=== PATIENT | male | born 1975 | race Caucasian/White ===

== ENCOUNTER 2023-05-12 04:49 | Inpatient (IN) | payer BC ==
[2023-05-12] MEDS ORDERED: levETIRAcetam IV 500 MG/5 ML VIAL IVP STA (05:25)
[2023-05-12] MEDS ORDERED: SODIUM CHLORIDE 0.9% 1,000 ML IV STA ×2 (05:25→07:00)
[2023-05-12 05:32] LABS: Glucose,Whole Blood 136 mg/dL (70-110)
[2023-05-12 05:33] LABS: Basophils # (A) 0.1 k/uL (0-0.2); Basophils % (A) 1 %; Eosinophils # (A) 0.5 k/uL (0-0.7); Eosinophils % (A) 4 %; HCT 50.2 % (39.0-53.0); HGB 16.3 gm/dL (13.0-17.5); Lymphocytes # (A) 2.4 k/uL (1.0-4.8); Lymphocytes % (A) 22 %; MCH 31.4 pg (25.0-35.0); MCHC 32.5 g/dL (31.0-37.0); MCV 96.6 fL (80.0-100.0); Mean Platelet Volume 7.9; Monocytes # (A) 1.2 k/uL (0-1.0); Monocytes % (A) 11 %; Neutrophils # (A) 6.4 k/uL (1.3-7.7); Neutrophils % (A) 59 %; Platelet Count 332 k/uL (150-450); RDW 12.6 % (11.5-15.5); WBC 10.9 k/uL (3.8-10.6)
[2023-05-12 05:42] LABS: AST 45 U/L (17-59); African American GFR (CKD) >90 (>60 ml/min/1.73 sqM); Albumin 5.2 g/dL (3.5-5.0); Alcohol <10 mg/dL; Alkaline Phosphatase 48 U/L (38-126); Blood Urea Nitrogen 6 mg/dL (9-20); Calcium 10.7 mg/dL (8.4-10.2); Chloride 107 mmol/L (98-107); Glucose 158 mg/dL (74-99); Magnesium 2.4 mg/dL (1.6-2.3); Non-African American GFR(CKD) >90 (>60 ml/min/1.73 sqM); Potassium 4.5 mmol/L (3.5-5.1); Sodium 141 mmol/L (137-145); Total Bilirubin 1.1 mg/dL (0.2-1.3); Total Protein 8.4 g/dL (6.3-8.2)
--- NOTE | 2023-05-12 05:44 | ED ---
General Adult HPI - General Chief complaint: Neuro Symptoms/Deficit Stated complaint: Seizure Time Seen by Provider: 05/12/23 05:07 Source: patient, EMS Mode of arrival: EMS Limitations: no limitations - History of Present Illness Initial comments: Tevin is a 48-year-old male with history of hypertension who presents to the emergency department today via ambulance for evaluation of new onset of seizure. History is provided by the patient's significant other at bedside. Significant other reports that yesterday the patient was having some episodes in which she would have a blank stare and not be responsive. These episodes last a couple of minutes and resolves spontaneously. They were concerned this may be a reaction to his new hypertension medication and decided not to seek care however approximately one hour prior to arrival the patient had an episode of seizure- like activity followed by snoring respirations and then a second episode of s eizure activity he was postictal for EMS arrival brought to the ER for further evaluation. Other reports that the patient does occasionally drink alcohol usually only on weekends, yesterday he may have had approximately 10 beers however he's never been through alcohol withdrawal. - Related Data Home Medications Medication Instructions Recorded Confirmed Levothyroxine Sodium [Synthroid] 100 mcg PO DAILY@0430 05/12/23 05/12/23 Tamsulosin HCl [Flomax] 0.4 mg PO DAILY@1700 05/12/23 05/12/23 lisinopriL [Prinivil] 10 mg PO DAILY@0430 05/12/23 05/12/23 Allergies Allergy/AdvReac Type Severity Reaction Status Date / Time No Known Allergies Allergy Verified 05/12/23 04:57 Review of Systems ROS Statement: Those systems with pertinent positive or pertinent negative responses have been documented in the HPI. ROS Other: All systems not noted in ROS Statement are negative. Past Medical History Past Medical History: Hypertension History of Any Multi-Drug Resistant Organisms: None Reported Past Surgical History: No Surgical Hx Reported Past Psychological History: No Psychological Hx Reported Smoking Status: Never smoker Past Alcohol Use History: Occasional Past Drug Use History: Marijuana General Exam - General Exam Comments Initial Comments: Physical Exam GENERAL: Patient is well-developed and well-nourished. Patient actively seizing HENT: Normocephalic, Atraumatic. EYES: Eyes deviated downward PULMONARY: Unlabored respirations. CARDIOVASCULAR: Tachycardic, regular ABDOMEN: Non-distended SKIN: No rashes or bruising : Deferred NEUROLOGIC: Seizing MUSCULOSKELETAL: Seizing No obvious injury PSYCHIATRIC: Unable to assess Limitations: no limitations Course Vital Signs 05/12/23 05/12/23 05/12/23 04:53 05:14 06:30 Temperature Pulse Rate 112 H 105 H 95 Respiratory 20 18 18 Rate Blood Pressure 158/98 129/78 120/81 O2 Sat by Pulse 98 96 98 Oximetry 05/12/23 05/12/23 05/12/23 07:00 08:00 10:00 Temperature 97.8 F Pulse Rate 92 89 80 Respiratory 18 16 16 Rate Blood Pressure 135/72 112/70 106/71 O2 Sat by Pulse 98 97 98 Oximetry 05/12/23 05/12/23 05/12/23 11:00 13:00 14:00 Temperature Pulse Rate 79 75 79 Respiratory 16 16 16 Rate Blood Pressure 111/93 139/98 122/86 O2 Sat by Pulse 100 98 100 Oximetry 05/12/23 15:00 Temperature 98.1 F Pulse Rate 80 Respiratory 16 Rate Blood Pressure 137/96 O2 Sat by Pulse 98 Oximetry EKG Findings - EKG Comments: EKG Findings:: EKG obtained due to acute cardiac, EKG obtained at 4:54 AM, rate is 111 rhythm is narrow complex regular tachycardia P-wave before each QRS this is a sinus tachycardia with no acute ST elevations or depressions no evidence of acute ischemia or infarction. Medical Decision Making - Medical Decision Making Was pt. sent in by a medical professional or institution (, PA, CENTRAL SUPPLY CLERK, urgent care, hospital, or fdc...) When possible be specific @ -No Did you speak to anyone other than the patient for history (EMS, parent, family, police, friend...)? What history was obtained from this source @ -Significant other, EMS Did you review nursing and triage notes (agree or disagree)? Why? @ -I reviewed and agree with nursing and triage notes Were old charts reviewed (outside hosp., previous admission, EMS record, old EKG, old radiological studies, urgent care reports/EKG's, fdc records)? Report findings @ -No old charts were reviewed Differential Diagnosis (chest pain, altered mental status, abdominal pain women, abdominal pain men, vaginal bleeding, weakness, fever, dyspnea, syncope, headache, dizziness, GI bleed, back pain, seizure, CVA, palpatations, mental health, musculoskeletal)? @ -Differential Seizure: Recurrent seizure disorder, febrile seizure, alcohol withdrawal, stimulants, meningitis, encephalitis, intercranial hemorrhage, intracranial tumor, stroke, eclampsia, thyrotoxicosis, hypocalcemia, hyponatremia, hypernatremia, hypomagnesemia, psychogenic, this is not meant to be an all-inclusive list. EKG interpreted by me (3pts min.). @ -As above X-rays interpreted by me (1pt min.). @ -None done CT interpreted by me (1pt min.). @ -No obvious mass or bleed U/S interpreted by me (1pt. min.). @ -None done What testing was considered but not performed or refused? (CT, X-rays, U/S, labs)? Why? @ -MRI, EEG can be performed on admission What meds were considered but not given or refused? Why? @ -None Did you discuss the management of the patient with other professionals (professionals i.e. , PA, CENTRAL SUPPLY CLERK, lab, RT, psych nurse, hospital social worker, programming specialist, teacher, life science technical officer, case filler)? Give summary @ -Dr. Vale admitting physician Was smoking cessation discussed for >3mins.? @ -No Was critical care preformed (if so, how long)? @ -Yes, 30 minutes Were there social determinants of health that impacted care today? How? ( Homelessness, low income, unemployed, alcoholism, drug addiction, transportation, low edu. Level, literacy, decrease access to med. care, mcc, rehab)? @ -No Was there de-escalation of care discussed even if they declined (Discuss DNR or withdrawal of care, Hospice)? DNR status @ -No What co-morbidities impacted this encounter? (DM, HTN, Smoking, COPD, CAD, Cancer, CVA, ARF, Chemo, Hep., AIDS, mental health diagnosis, sleep apnea, morbid obesity)? @ -Hypertension Was patient admitted / discharged? Hospital course, mention meds given and route, prescriptions, significant lab abnormalities, going to OR and other pertinent info. @ -Admit Patient was seen at outside, history was obtained from significant other. Patient with 2 seizures prior to arrival patient had a tonic-clonic seizure with loss of consciousness lasting greater than 2 minutes with a prolonged postictal period. Patient received 2 mg IV Ativan and 1 g of Keppra. Head CT was negative. Labs resulted with likely high anion gap metabolic acidosis due to lactic acid from the seizure. No other actionable abnormalities were noted. Patient will be admitted for neurology evaluation. Patient care discussed with Dr Randy Levy who agrees with plan for admission for MRI/EEG and treatment with PO Keppra 750mg. Undiagnosed new problem with uncertain prognosis? @ -YeS Drug Therapy requiring intensive monitoring for toxicity (Heparin, Nitro, Insulin, Cardizem)? @ -No Were any procedures done? @ -No Diagnosis/symptom? @ -New onset seizure Acute, or Chronic, or Acute on Chronic? @ -Acute Uncomplicated (without systemic symptoms) or Complicated (systemic symptoms)? @ -default Side effects of treatment? @ -No Exacerbation, Progression, or Severe Exacerbation? @ -No Poses a threat to life or bodily function? How? (Chest pain, [place], [place], pneumonia, PE, COPD, DKA, ARF, appy, cholecystitis, CVA, Diverticulitis, Homicidal, Suicidal, threat to staff... and all critical care pts) @ -Yes - Lab Data Result diagrams: 05/12/23 05:27 05/12/23 05:27 Lab Results 05/12/23 05/12/23 05/12/23 Range/Units 05:27 05:27 05:27 WBC 10.9 H (3.8-10.6) k/uL RBC 5.20 (4.30-5.90) m/uL Hgb 16.3 (13.0-17.5) gm/dL Hct 50.2 (39.0-53.0) % MCV 96.6 (80.0-100.0) fL MCH 31.4 (25.0-35.0) pg MCHC 32.5 (31.0-37.0) g/dL RDW 12.6 (11.5-15.5) % Plt Count 332 (150-450) k/uL MPV 7.9 Neutrophils % 59 % Lymphocytes % 22 % Monocytes % 11 % Eosinophils % 4 % Basophils % 1 % Neutrophils # 6.4 (1.3-7.7) k/uL Lymphocytes # 2.4 (1.0-4.8) k/uL Monocytes # 1.2 H (0-1.0) k/uL Eosinophils # 0.5 (0-0.7) k/uL Basophils # 0.1 (0-0.2) k/uL Sodium 141 (137-145) mmol/L Potassium 4.5 (3.5-5.1) mmol/L Chloride 107 (98-107) mmol/L Carbon Dioxide <5 L* (22-30) mmol/L Anion Gap mmol/L BUN 6 L (9-20) mg/dL Creatinine 0.76 (0.66-1.25) mg/dL Est GFR (CKD-EPI)AfAm >90 (>60 ml/min/1.73 sqM) Est GFR (CKD-EPI)NonAf >90 (>60 ml/min/1.73 sqM) Glucose 158 H (74-99) mg/dL POC Glucose (mg/dL) (70-110) mg/dL POC Glu Service Operator ID Calcium 10.7 H (8.4-10.2) mg/dL Magnesium 2.4 H (1.6-2.3) mg/dL Total Bilirubin 1.1 (0.2-1.3) mg/dL AST 45 (17-59) U/L ALT 52 H (4-49) U/L Alkaline Phosphatase 48 (38-126) U/L Total Protein 8.4 H (6.3-8.2) g/dL Albumin 5.2 H (3.5-5.0) g/dL Urine Opiates Screen Not Detected (NotDetected) Ur Oxycodone Screen Not Detected (NotDetected) Urine Methadone Screen Not Detected (NotDetected) Ur Propoxyphene Screen Not Detected (NotDetected) Ur Barbiturates Screen Not Detected (NotDetected) U Tricyclic Antidepress Not Detected (NotDetected) Ur Phencyclidine Scrn Not Detected (NotDetected) Ur Amphetamines Screen Not Detected (NotDetected) U Methamphetamines Scrn Not Detected (NotDetected) U Benzodiazepines Scrn Not Detected (NotDetected) Urine Cocaine Screen Not Detected (NotDetected) U Marijuana (THC) Screen Detected H (NotDetected) Serum Alcohol <10 mg/dL 05/12/23 Range/Units 05:30 WBC (3.8-10.6) k/uL RBC (4.30-5.90) m/uL Hgb (13.0-17.5) gm/dL Hct (39.0-53.0) % MCV (80.0-100.0) fL MCH (25.0-35.0) pg MCHC (31.0-37.0) g/dL RDW (11.5-15.5) % Plt Count (150-450) k/uL MPV Neutrophils % % Lymphocytes % % Monocytes % % Eosinophils % % Basophils % % Neutrophils # (1.3-7.7) k/uL Lymphocytes # (1.0-4.8) k/uL Monocytes # (0-1.0) k/uL Eosinophils # (0-0.7) k/uL Basophils # (0-0.2) k/uL Sodium (137-145) mmol/L Potassium (3.5-5.1) mmol/L Chloride (98-107) mmol/L Carbon Dioxide (22-30) mmol/L Anion Gap mmol/L BUN (9-20) mg/dL Creatinine (0.66-1.25) mg/dL Est GFR (CKD-EPI)AfAm (>60 ml/min/1.73 sqM) Est GFR (CKD-EPI)NonAf (>60 ml/min/1.73 sqM) Glucose (74-99) mg/dL POC Glucose (mg/dL) 136 H (70-110) mg/dL POC Glu Service Operator ID Calcium (8.4-10.2) mg/dL Magnesium (1.6-2.3) mg/dL Total Bilirubin (0.2-1.3) mg/dL AST (17-59) U/L ALT (4-49) U/L Alkaline Phosphatase (38-126) U/L Total Protein (6.3-8.2) g/dL Albumin (3.5-5.0) g/dL Urine Opiates Screen (NotDetected) Ur Oxycodone Screen (NotDetected) Urine Methadone Screen (NotDetected) Ur Propoxyphene Screen (NotDetected) Ur Barbiturates Screen (NotDetected) U Tricyclic Antidepress (NotDetected) Ur Phencyclidine Scrn (NotDetected) Ur Amphetamines Screen (NotDetected) U Methamphetamines Scrn (NotDetected) U Benzodiazepines Scrn (NotDetected) Urine Cocaine Screen (NotDetected) U Marijuana (THC) Screen (NotDetected) Serum Alcohol mg/dL Disposition Clinical Impression: New onset seizure Disposition: ADMITTED IP TO THIS HOSP Is patient prescribed a controlled substance at d/c from ED?: No
[2023-05-12 05:48] LABS: Carbon Dioxide <5 mmol/L (22-30)
[2023-05-12 05:50] LABS: ALT 52 U/L (4-49)
[2023-05-12] MEDS ORDERED: LORazepam 2 MG/ML INJ IV STA (06:16)
--- NOTE | 2023-05-12 06:58 | CT ---
EXAMINATION TYPE: CT brain wo con CT DLP: 1252 mGycm, Automated exposure control for dose reduction was used. DATE OF EXAM: 05/12/2023 6:22 AM COMPARISON: No recent priors.. CLINICAL INDICATION:Male, 48 years old with history of seizure activity, TECHNIQUE: Brain: Axial CT images of the brain were obtained with coronal and sagittal reformats created and rev iewed. Contrast used: None. Oral contrast used: None. FINDINGS: Brain: Extra-axial spaces: No abnormal extra-axial fluid collections. Ventricular system: Within normal limits Cerebral parenchyma: No acute intraparenchymal hemorrhage or mass effect. The peters-white junction is well differentiated. Cerebellum: Unremarkable. Mass effect: No evidence of midline shift. Intracranial vasculature: unremarkable Soft tissues: Normal. Calvarium/osseous structures: No depressed skull fracture. Paranasal sinuses and mastoid air cells: Mild scattered paranasal sinus disease. Visualized orbits: Orbital contents are intact. IMPRESSION: No acute intracranial process.
[2023-05-12] MEDS ORDERED: NALOXONE 0.4 MG/ML 1 ML VIAL IV PRN (07:20)
[2023-05-12] MEDS: SODIUM CHLORIDE 0.9% 1,000 ML IV SCH (07:32)
[2023-05-12 08:26] LABS: Amphetamine Screen,Urine Not Detected (NotDetected); Barbiturate Screen,Urine Not Detected (NotDetected); Benzodiazepines Screen,Urine Not Detected (NotDetected); Cocaine Screen,Urine Not Detected (NotDetected); Methadone Screen, Urine Not Detected (NotDetected); Opiate Screen,Urine Not Detected (NotDetected); Oxycodone Screen, Urine Not Detected (NotDetected); Phencyclidine Screen,Urine Not Detected (NotDetected); Tricyclic Antidepressant,Urine Not Detected (NotDetected); Urn Cannabinoid Scrn Detected (NotDetected)
--- NOTE | 2023-05-12 13:12 | P.HPIM ---
History of Present Illness H&P Date: 05/12/23 Chief Complaint: Seizure activity This is a 48-year-old gentleman with past medical history significant for hypertension, BPH, hypothyroidism, obesity, daily alcohol use, marijuana use, transferred into the ER via EMS. Significant other reported to ER that patient drank approximately 10 beers yesterday.Patient developed seizure -like activity accompanied by blank stares and snoring, multiple episodes. EMS reports upon arrival,patient was post ictal, received 2 mg of IV Ativan and 1 g of Keppra. Brain CT negative. Patient this morning reports he drinks 4- tall boys daily, but thinks he only consumed two yesterday. Does not recall the entire event very well just remembers he felt lightheaded ,some confusion, palpitations upon walking back to his bed around 10 PM and then remembers getting up off the floor. Reports urine incontinence- states "the bed was wet". Does not recall the downtime.On admission mild tachycardia, maintaining O2 sats in the high 90s on 5 L nasal cannula, hypertensive with blood pressure 158/98, respiratory rate 20. Afebrile, WBC 10.9. EKG sinus tachycardia, currently telemetry sinus rhythm. Hemoglobin 16.3, MCV 96.6, platelets 332, sodium 141, potassium 4.5, bicarb less than 5, anion gap unable to calculate, BUN 6, creatinine 0.76, glucose 136, magnesium 2.4, ALT 52. Toxicology screen detected THC, serum alcohol less than 10. Majority of information obtained from ER, chart and patient. Review of Systems ROS Statement: Those systems with pertinent positive or pertinent negative responses have been documented in the HPI. ROS Other: All systems not noted in ROS Statement are negative. Past Medical History Past Medical History: Hypertension History of Any Multi-Drug Resistant Organisms: None Reported Past Surgical History: No Surgical Hx Reported Past Psychological History: No Psychological Hx Reported Smoking Status: Never smoker Past Alcohol Use History: Occasional Past Drug Use History: Marijuana Medications and Allergies Home Medications Medication Instructions Recorded Confirmed Type Levothyroxine Sodium [Synthroid] 100 mcg PO DAILY@0430 05/12/23 05/12/23 History Tamsulosin HCl [Flomax] 0.4 mg PO DAILY@1700 05/12/23 05/12/23 History lisinopriL [Prinivil] 10 mg PO DAILY@0430 05/12/23 05/12/23 History Allergies Allergy/AdvReac Type Severity Reaction Status Date / Time No Known Allergies Allergy Verified 05/12/23 04:57 Physical Exam Vitals: Vital Signs Temp Pulse Resp BP Pulse Ox 05/12/23 08:00 97.8 F 89 16 112/70 97 05/12/23 07:00 92 18 135/72 98 05/12/23 06:30 95 18 120/81 98 05/12/23 05:14 105 H 18 129/78 96 05/12/23 04:53 112 H 20 158/98 98 Intake and Output 05/11/23 05/12/23 05/12/23 22:59 06:59 14:59 Other: Weight 99.79 kg PHYSICAL EXAM: VITAL SIGNS: As above GENERAL: Well-nourished, Lying on stretcher, no acute distress,resting. ] HEENT: Normocephalic,Conjunctivae normal. eyes normal. NECK: Supple, No JVD. No thyroid enlargement. No LNs CARDIOVASCULAR: S1, S2 regular.No murmur RESPIRATION: Unlabored, equal air entry, Breath sounds diminished in the bases. No rhonchi or crackles. No bronchial breathing. ABDOMEN: Soft, nontender, nondistended . No guarding. no masses palpable. No ascites, No hepatosplenomegaly.Bowel sounds heard. LEGS: No edema. no swelling PSYCHIATRY: Alert and oriented X3, mood and affect normal. NERVOUS SYSTEM: Cranial N 2-12 grossly normal. No focal deficits.negative flap test. Strength and sensation grossly intact. Skin: Warm and dry, no rash. Results CBC & Chem 7: 05/12/23 05:27 05/12/23 05:27 Labs: Abnormal Lab Results - Last 24 Hours (Table) 05/12/23 05/12/23 05/12/23 Range/Units 05:27 05:27 05:27 WBC 10.9 H (3.8-10.6) k/uL Monocytes # 1.2 H (0-1.0) k/uL Carbon Dioxide <5 L* (22-30) mmol/L BUN 6 L (9-20) mg/dL Glucose 158 H (74-99) mg/dL POC Glucose (mg/dL) (70-110) mg/dL Calcium 10.7 H (8.4-10.2) mg/dL Magnesium 2.4 H (1.6-2.3) mg/dL ALT 52 H (4-49) U/L Total Protein 8.4 H (6.3-8.2) g/dL Albumin 5.2 H (3.5-5.0) g/dL U Marijuana (THC) Screen Detected H (NotDetected) 05/12/23 Range/Units 05:30 WBC (3.8-10.6) k/uL Monocytes # (0-1.0) k/uL Carbon Dioxide (22-30) mmol/L BUN (9-20) mg/dL Glucose (74-99) mg/dL POC Glucose (mg/dL) 136 H (70-110) mg/dL Calcium (8.4-10.2) mg/dL Magnesium (1.6-2.3) mg/dL ALT (4-49) U/L Total Protein (6.3-8.2) g/dL Albumin (3.5-5.0) g/dL U Marijuana (THC) Screen (NotDetected) Assessment and Plan Assessment: New onset seizure activity the patient with daily alcohol use, THC, etiology unclear. History of atrial fibrillation, reported per patient Hypertension Alcohol abuse, daily Marijuana use Hypothyroidism Obesity Plan: Continue on current medication regime ,monitoring and symptomatic treatment. Seizure precautions. Neurology consult in place ,recommendations pending. Patient also informed us that he has a history of atrial fibrillation, as does his father, therefore cardiology was also consulted. The impression and plan of care has been dictated as directed. : I performed a history and examination of this patient, discussed the same with the dictator. I agree with the dictator's note ,documented as a scribe. Any additional findings or plans will be noted.
[2023-05-12] MEDS ORDERED: LORazepam 2 MG/ML INJ IV PRN (14:36)
--- NOTE | 2023-05-12 14:36 | P.CNNES ---
History of Present Illness Consult date: 05/12/23 Requesting physician: Letty Porras Reason for Consult: new onset seizure History of Present Illness: This is a 48-year-old gentleman presented emergency department because of seizure-like activity. The patient is accompanied with his and [id number] will help well with some of the history. It seems that the patient was having episode of blank stares and confusions yesterday that was brief according to the and he had about 3 episodes and refused to come to the hospital for evaluation. Today the woke the patient up at 4 AM and then shortly after she heard a "crash" and went and saw her on the floor face down and was taken throughout all extremities and the episode lasted the activity then within a few minutes he had another seizure also lasting less than a minute and it seems that he had 2 seizures within 5 minutes. 911 was called and seems that the patient had another seizure-like activity in which the he had shaking of all extremities though seen by ambulance according to the and had another one while in the ED with drooling. Per the that he had a total 4 seizure-like activities today. It seems that the this past Thursday the patient has not been feeling well and had low-grade fever as high as 99.5 which resolved on Thursday he has not been drinking alcohol as much last couple days but then yesterday he drank a little bit more. According to the he probably had 6-8 and cans of beers yesterday but again after last couple days he has not been drinking. He does not have any history of seizures. Denies any sick contacts. He does have a rash in his feet and he thinks it's the due to athlete's foot. He uses marijuana but denies any illicit drug use or tobacco use. He feels he is currently doing better. Denies of any headache. Denies of any visual disturbance, focal weakness. Per the patient's has history of hypertension for last 2 weeks and has been on medication, he is on thyroid medication, he has Alba, as well as E told he has a heart condition. Some of the workup during his hospital visit consisted of: Patient is afebrile. He presented that tachycardia as high as 112. Respiratory rate is within normal limits. white Blood cell is 10.9 otherwise and it's the unremarkable. Currently oxygen less than 5, BUN 6, creatinine is 0.76, glucose is 158, calcium is 10.7, magnesium 2.4, AST is 45 ALT is 52. Urine drug screen is positive for marijuana otherwise dresses not detected and serum alcohol was less than 10. CT of the head is reported as no acute intracranial process. I personally reviewed the CT head I agree there is no acute or subacute ischemia, there is no any significant bleed, I don't appreciate any mass or any herniation. Review of Systems Review of system: The 12 point system was reviewed and apparent positive and negative per HPI. Past Medical History Past Medical History: Hypertension History of Any Multi-Drug Resistant Organisms: None Reported Past Surgical History: No Surgical Hx Reported Past Psychological History: No Psychological Hx Reported Smoking Status: Never smoker Past Alcohol Use History: Occasional Past Drug Use History: Marijuana Medications and Allergies Home Medications Medication Instructions Recorded Confirmed Type Levothyroxine Sodium [Synthroid] 100 mcg PO DAILY@0430 05/12/23 05/12/23 History Tamsulosin HCl [Flomax] 0.4 mg PO DAILY@1700 05/12/23 05/12/23 History lisinopriL [Prinivil] 10 mg PO DAILY@0430 05/12/23 05/12/23 History Allergies Allergy/AdvReac Type Severity Reaction Status Date / Time No Known Allergies Allergy Verified 05/12/23 04:57 Physical Examination - Vital Signs Vital Signs: Vital Signs Temp Pulse Resp BP Pulse Ox 05/12/23 08:00 97.8 F 89 16 112/70 97 05/12/23 07:00 92 18 135/72 98 05/12/23 06:30 95 18 120/81 98 05/12/23 05:14 105 H 18 129/78 96 05/12/23 04:53 112 H 20 158/98 98 Intake and Output 05/11/23 05/12/23 05/12/23 22:59 06:59 14:59 Other: Weight 99.79 kg GENERAL: The patient is lying in bed and is not in acute distress. NEUROLOGICAL: Higher mental function: The patient is awake, alert, oriented to self, place and time. Patient is following commands. No aphasia and no neglect. Cranial nerves: The pupils are round, equal and reactive to light and accommodation. Visual schilling are full to confrontation throughout. Extraocular movement is intact no nystagmus is noted. Facial sensation is normal to touch throughout. The facial strength is normal throughout. Hearing is normal bilaterally to hand rub. Tongue is midline and moved [id number] without any difficulty. No dysarthria is noted. Shoulder shrug is normal bilaterally. Motor: The strength is 5 over 5 throughout. Normal tone and bulk. Cerebellum: Normal finger to nose bilaterally. Sensation: Sensation is normal to touch throughout. Reflexes (right/left): 2+ throughout. Plantars are downgoing bilaterally. Results - Laboratory Findings CBC and BMP: 05/12/23 05:27 05/12/23 05:27 Abnormal Lab Findings: Abnormal Labs 05/12/23 05/12/23 05/12/23 05:27 05:27 05:27 WBC 10.9 H Monocytes # 1.2 H Carbon Dioxide <5 L* BUN 6 L Glucose 158 H POC Glucose (mg/dL) Calcium 10.7 H Magnesium 2.4 H ALT 52 H Total Protein 8.4 H Albumin 5.2 H U Marijuana (THC) Screen Detected H 05/12/23 05:30 WBC Monocytes # Carbon Dioxide BUN Glucose POC Glucose (mg/dL) 136 H Calcium Magnesium ALT Total Protein Albumin U Marijuana (THC) Screen Assessment and Plan Assessment: This is a 48-year-old gentleman with not been feeling well since this past Thursday and had low-grade fever and had the decrease in all call consumption since he has not been feeling well recently but yesterday he had probably about 6-8 cans of beers and the yesterday he's been having the 3 episode of blank stare with confusion but refused come to the hospital. The patient had the 4 witnessed generalized tonic-clonic seizure according to the . Patient does not have any history of prior seizures in the past. New onset seizure and seems the patient has clinical status epilepticus that resolved: Unsure exactly the etiology. Unsure if there is a component of alcohol withdrawal since the patient has not been drinking call for the last couple days and his alcohol level was less than 10 Low-grade fever this past week that resolved: Unsure exactly etiology Hypertension hypothyroidism ALBA Alcohol use Plan: I ordered a routine EEG as well as MRI the brain. The EEG is completed and the preliminary report as there is no seizure seen In the ED the patient was given Keppra 1 g patient received 2 mg of Ativan. I placed him on Keppra 500 mg every 12 hours and prior to this she was not on any antiepileptic (no need for higher level dose since new onset seizure and was not on antiepileptic prior to this and is drastically better). I ordered vitamin B12, folate, TSH, ammonia level. I consulted the ID team because the of patient having low-grade fever and further workup. All the workup is negative and the patient continues to have confusion with seizures consider lumbar puncture. Seizure precautions Seizure pads I placed the patient on thiamine 100mg daily. She was counseled on alcohol cessation Patient was notified because his seizures, to avoid driving for 6 month until seizure-free, avoid heights, avoids swimming unassisted or using heavy machinery. Defer the rest of the medical management to primary team. The plan is discussed with patient, his and [id number] who is at bedside. Thank you for the consultation. Time with Patient: Greater than 30
--- NOTE | 2023-05-12 14:47 | P.CRDCN ---
History of Present Illness Consult date: 05/12/23 Consult reason: atrial fibrillation (History of) History of present illness: History of present illness: This is a 48-year-old male with past medical history of fatty liver, hypertension, hypothyroidism, benign prostatic hypertrophy. We have been asked to see the patient for history of atrial fibrillation. Patient states he has never been diagnosed with atrial fibrillation. He did have a event monitor placed by Dr. Irving in 2016 and he does not know the results of that. He now follows with Dr. Archer and is scheduled for a calcium scan to be done at [facility] scheduled on June 08. Patient states he thinks he may have atrial fibrillation because his father has it and he feels that when people check his pulse it is irregular. He does not know for sure. Also has fluttering of his chest at times. He had 2 episodes of almost passing out while mowing the lawn during the summer and he states his hands and his body was shaking. Patient had a seizure activity yesterday with blank stares and snoring. That was the reason for him to come into the hospital. He denies history of smoking. He drinks at least a couple beers Thursday through Thursday and a stroke on the weekends. He uses edible marijuana. No other drug use. The patient is noted to have a stress echo done in 2016 which was normal. Patient is seen today in the emergency center waiting for a bed on the cardiac stepdown unit. Neurology is following for seizure disorder workup. EKG sinus rhythm, telemetry sinus rhythm CAT scan of the brain no abnormality WBC 10.9, hemoglobin 16.3. CO2 less than 5. BUN 6, creatinine 0.76. Blood sugar 158. Calcium 10.7. Magnesium 2.4. ALT 52. Drug screen positive for marijuana. Alcohol less than 10. Home cardiac medications: Lisinopril 10 mg daily. He is also on levothyroxine 100 g daily. Review Of Systems: At the time of my evaluation: Constitutional: No fever, no chills. No weakness, fatigue or lethargy. EENT: No headache. No dizziness. Lungs: No shortness of breath, cough, no sputum production. No wheezing. Cardiovascular: No chest pain, no lower extremity edema. No palpitations. No paroxysmal nocturnal dyspnea. No orthopnea. No lightheadedness or dizziness. Reports seizure. Abdominal: No abdominal pain. No nausea, vomiting. Musculoskeletal: No myalgias. No muscle weakness, no frequent falls. Integumentary: No wounds. No rash. No unusual bruising. Neurologic: No aphasia. No facial droop. No change in mentation. Physical examination: Gen: This is a 48-year-old male seen in the ER on the ER stretcher resting with no apparent distress. VS: reviewed HEENT: Head is atraumatic, normocephalic. Pupils equal, round. Sclerae is anicteric. NECK: Supple. No JVD. . LUNGS: Clear to auscultation. No wheezes or rhonchi. No intercostal retractions. HEART: Regular rate and rhythm. No murmur. ABDOMEN: Soft No tenderness. EXTREMITIES: No pedal edema. No calf tenderness. NEUROLOGICAL: Patient is awake, alert and oriented x3. Assessment: No seizure disorder Irregular heartbeat, palpitations No previous diagnosis of atrial fibrillation Hypertension Hypothyroidism Fatty liver Alcohol abuse, marijuana use Plan: Plan for event monitor Follow-up in the office in 3-4 weeks Cardiology will sign off this case and follow on an as-needed basis. Please reconsult for any new concerns. Patient may follow-up in the office in one to 2 weeks. Thank you kindly for this consultation. Nurse practitioner note has been reviewed, I agree with documented findings and plan of care. Patient was seen and examined. Past Medical History Past Medical History: Hypertension History of Any Multi-Drug Resistant Organisms: None Reported Past Surgical History: No Surgical Hx Reported Past Psychological History: No Psychological Hx Reported Smoking Status: Never smoker Past Alcohol Use History: Occasional Past Drug Use History: Marijuana Medications and Allergies Home Medications Medication Instructions Recorded Confirmed Type Levothyroxine Sodium [Synthroid] 100 mcg PO DAILY@0430 05/12/23 05/12/23 History Tamsulosin HCl [Flomax] 0.4 mg PO DAILY@1700 05/12/23 05/12/23 History lisinopriL [Prinivil] 10 mg PO DAILY@0430 05/12/23 05/12/23 History Allergies Allergy/AdvReac Type Severity Reaction Status Date / Time No Known Allergies Allergy Verified 05/12/23 04:57 Physical Exam Vitals: Vital Signs Temp Pulse Resp BP Pulse Ox 05/12/23 08:00 97.8 F 89 16 112/70 97 05/12/23 07:00 92 18 135/72 98 05/12/23 06:30 95 18 120/81 98 05/12/23 05:14 105 H 18 129/78 96 05/12/23 04:53 112 H 20 158/98 98 Intake and Output 05/11/23 05/12/23 05/12/23 22:59 06:59 14:59 Other: Weight 99.79 kg Results 05/12/23 05:27 05/12/23 05:27 Cardiac Enzymes 05/12/23 Range/Units 05:27 AST 45 (17-59) U/L CBC 05/12/23 Range/Units 05:27 WBC 10.9 H (3.8-10.6) k/uL RBC 5.20 (4.30-5.90) m/uL Hgb 16.3 (13.0-17.5) gm/dL Hct 50.2 (39.0-53.0) % Plt Count 332 (150-450) k/uL Comprehensive Metabolic Panel 05/12/23 Range/Units 05:27 Sodium 141 (137-145) mmol/L Potassium 4.5 (3.5-5.1) mmol/L Chloride 107 (98-107) mmol/L Carbon Dioxide <5 L* (22-30) mmol/L BUN 6 L (9-20) mg/dL Creatinine 0.76 (0.66-1.25) mg/dL Glucose 158 H (74-99) mg/dL Calcium 10.7 H (8.4-10.2) mg/dL AST 45 (17-59) U/L ALT 52 H (4-49) U/L Alkaline Phosphatase 48 (38-126) U/L Total Protein 8.4 H (6.3-8.2) g/dL Albumin 5.2 H (3.5-5.0) g/dL Current Medications Generic Name Dose Route Start Last Admin Trade Name Freq PRN Reason Stop Dose Admin Sodium Chloride 1,000 mls @ 130 mls/hr 05/12/23 07:30 05/12/23 07:32 Saline 0.9% IV 130 mls/hr .[id number] MAULIK Administration Levetiracetam 750 mg 05/12/23 09:00 05/12/23 09:17 Levetiracetam 750 Mg Tab PO 750 mg Q12HR MAULIK Administration Levothyroxine Sodium 100 mcg 05/13/23 04:30 Levothyroxine 100 Mcg Tab PO DAILY@0430 MAULIK Naloxone HCl 0.2 mg 05/12/23 07:20 Naloxone 0.4 Mg/Ml 1 Ml Vial IV Q2M PRN Opioid Reversal Intake and Output 05/11/23 05/12/23 05/12/23 22:59 06:59 14:59 Other: Weight 99.79 kg 05/12/23 05:27 05/12/23 05:27
[2023-05-12 15:39] LABS: C Reactive Protein 1.7 mg/dL (<1.0)
[2023-05-12] MEDS: THIAMINE 100 MG TAB PO SCH (16:51)
[2023-05-12] MEDS: TAMSULOSIN 0.4 MG CAP.ER.24H PO SCH (17:04)
--- NOTE | 2023-05-12 18:19 | EEG ---
ELECTROENCEPHALOGRAM REPORT CLINICAL HISTORY: This is a 48-year-old gentleman with recurrent seizure-like activity. The video EEG is obtained to evaluate for seizure and epileptiform activity. RELEVANT MEDICATIONS: 1. Keppra. 2. Ativan. EEG TYPE: A routine 21-channel EEG with video using the 10/20 electrode placement system. DESCRIPTION: Wakefulness and drowsiness are obtained. During awake state, the background consists of low voltage of 10 to 11 Hz activity. There is no physiological stage II sleep architecture. There is no focal slowing. There is diffuse excessive beta activity. INTERICTAL AND ICTAL: None. ACTIVATION PROCEDURE: Photic stimulation did not evoke a posterior driving response. There is no abnormality during the photic stimulation. Hyperventilation is not performed. CLINICAL INTERPRETATION: This is an abnormal routine EEG. The background is normal. There is no focal slowing, epileptiform discharge, or seizure on the EEG. The excessive beta activity is likely due to medication effect (Ativan). Clinical correlation is recommended. DAMIEN / EDGARN: [id number] /
[2023-05-12 18:36] LABS: Procalcitonin 0.06 ng/mL (0.02-0.09)
[2023-05-12] MEDS: levETIRAcetam 500 MG TAB PO SCH (20:29)
[2023-05-12 21:07] LABS: HSV I IgG Interp Negative (Negative); HSV II IgG Interp Negative (Negative)
--- NOTE | 2023-05-12 21:24 | P.CONS ---
History of Present Illness - Reason for Consult Consult date: 05/12/23 Low-grade fever recently Requesting physician: Randy Levy - Chief Complaint Seizure activity x one day - History of Present Illness Patient is a 48-year-old male with a past medical history significant for hypertension presenting to the ER earlier this morning for evaluation of new onset seizure patient apparently did have episodes of blank stare and not respon sive EMS was called and on arrival of EMS the patient was noticed to have seizure-like activity followed by snoring respiration and the patient has been brought into the hospital patient also mentioned that he did have low-grade fever yesterday to the neurologist who evaluated the patient earlier and patient mentioned to me that he did have a fever 100 F this morning however no fever has been reported on arrival to the ER and once had been documented since then patient mentions for the first time he has seizures in his life has been complaining of mild headache patient denies any photophobia he is fully awake and alert and knows that he is at [facility] denies any nausea vomiting no chest pain shortness of breath or cough no abdominal pain no diarrhea and no urinary symptoms patient did have a white count of 10.9 creatinine 0.76 ALT was 52 urine drug screen was positive for marijuana patient did have a CT of the brain that was negative for acute intracranial process with his seizure and concern for a fever infectious disease was consulted also noticed to have athlete's foot to bilateral feet with dry scaly skin with some excoriation. Denies any pain or any drainage Review of Systems Positive point and negatives has been mentioned in the HPI, complete review of systems was performed and all other systems are negative Past Medical History Past Medical History: Hypertension History of Any Multi-Drug Resistant Organisms: None Reported Past Surgical History: No Surgical Hx Reported Past Psychological History: No Psychological Hx Reported Smoking Status: Never smoker Past Alcohol Use History: Occasional Past Drug Use History: Marijuana Medications and Allergies Home Medications Medication Instructions Recorded Confirmed Type Levothyroxine Sodium [Synthroid] 100 mcg PO DAILY@0430 05/12/23 05/12/23 History Tamsulosin HCl [Flomax] 0.4 mg PO DAILY@1700 05/12/23 05/12/23 History lisinopriL [Prinivil] 10 mg PO DAILY@0430 05/12/23 05/12/23 History Allergies Allergy/AdvReac Type Severity Reaction Status Date / Time No Known Allergies Allergy Verified 05/12/23 04:57 Physical Exam Vitals: Vital Signs Temp Pulse Resp BP Pulse Ox 05/12/23 08:00 97.8 F 89 16 112/70 97 05/12/23 07:00 92 18 135/72 98 05/12/23 06:30 95 18 120/81 98 05/12/23 05:14 105 H 18 129/78 96 05/12/23 04:53 112 H 20 158/98 98 Intake and Output 05/11/23 05/12/23 05/12/23 22:59 06:59 14:59 Other: Weight 99.79 kg GENERAL DESCRIPTION: Middle-aged male lying in bed, no distress. No tachypnea or accessory muscle of respiration use. HEENT: Shows Pallor , no scleral icterus. Oral mucous membrane is dry. No pharyngeal erythema or thrush NECK: Trachea central, no thyromegaly. LUNGS: Unlabored breathing. Clear to auscultation anteriorly. No wheeze or crackle. HEART: S1, S2, regular rate and rhythm. No loud murmur ABDOMEN: Soft, no tenderness , guarding or rigidity, no organomegaly EXTREMITIES: No edema of feet. SKIN: No rash, no masses palpable. NEUROLOGICAL: The patient is awake, alert, oriented x3, mood and affect normal. Results CBC & Chem 7: 05/12/23 05:27 05/12/23 05:27 Labs: Abnormal Lab Results - Last 24 Hours (Table) 05/12/23 05/12/23 05/12/23 Range/Units 05:27 05:27 05:27 WBC 10.9 H (3.8-10.6) k/uL Monocytes # 1.2 H (0-1.0) k/uL Carbon Dioxide <5 L* (22-30) mmol/L BUN 6 L (9-20) mg/dL Glucose 158 H (74-99) mg/dL POC Glucose (mg/dL) (70-110) mg/dL Calcium 10.7 H (8.4-10.2) mg/dL Magnesium 2.4 H (1.6-2.3) mg/dL ALT 52 H (4-49) U/L Total Protein 8.4 H (6.3-8.2) g/dL Albumin 5.2 H (3.5-5.0) g/dL U Marijuana (THC) Screen Detected H (NotDetected) 05/12/23 Range/Units 05:30 WBC (3.8-10.6) k/uL Monocytes # (0-1.0) k/uL Carbon Dioxide (22-30) mmol/L BUN (9-20) mg/dL Glucose (74-99) mg/dL POC Glucose (mg/dL) 136 H (70-110) mg/dL Calcium (8.4-10.2) mg/dL Magnesium (1.6-2.3) mg/dL ALT (4-49) U/L Total Protein (6.3-8.2) g/dL Albumin (3.5-5.0) g/dL U Marijuana (THC) Screen (NotDetected) Assessment and Plan Plan: 1patient presented hospital with a seizure activity patient apparently mention he did have a fever however no fever and recorded since being in the hospital patient did not have any leukocytosis no headache, neck rigidity or any con fusion to be suspicious for underlying meningitis/encephalitis 2-patient did have evidence of athlete's foot but no evidence of any cellulitis 3-we will check inflammatory markers and check HSV serology 4-apply nystatin cream in between the toes twice a day 5-no need for systemic antibiotic therapy at this point We will follow on clinical condition and cultures to further adjust medication if needed Thank you for this consultation we will follow the patient along with you Dictation was produced using [employer] dictation software. please excuse any grammatical, word or spelling errors. Time with Patient: Greater than 30
[2023-05-12] MEDS: NYSTATIN 100,000UNIT/GM CREAM 30 GM TUBE TOPICAL SCH (21:47)
[2023-05-13 03:06] LABS: Vitamin B12 <150.0 pg/mL (200.0-944.0)
[2023-05-13] MEDS: lisinopriL 10 MG TAB PO SCH (04:39)
[2023-05-13] MEDS: LEVOTHYROXINE 100 MCG TAB PO SCH (04:39)
[2023-05-13] MEDS: SODIUM CHLORIDE 0.9% 1,000 ML IV SCH ×2 (05:35→13:07)
[2023-05-13 08:32] LABS: African American GFR (CKD) >90 (>60 ml/min/1.73 sqM); Anion Gap 10 mmol/L; Blood Urea Nitrogen 6 mg/dL (9-20); Calcium 8.9 mg/dL (8.4-10.2); Carbon Dioxide 19 mmol/L (22-30); Chloride 104 mmol/L (98-107); Glucose 85 mg/dL (74-99); Non-African American GFR(CKD) >90 (>60 ml/min/1.73 sqM); Potassium 3.7 mmol/L (3.5-5.1); Sodium 133 mmol/L (137-145)
[2023-05-13] MEDS: NYSTATIN 100,000UNIT/GM CREAM 30 GM TUBE TOPICAL SCH ×2 (08:40→20:06)
[2023-05-13] MEDS: levETIRAcetam 500 MG TAB PO SCH ×2 (08:40→20:04)
[2023-05-13] MEDS: THIAMINE 100 MG TAB PO SCH (08:40)
[2023-05-13] MEDS ORDERED: CYANOCOBALAMIN 1,000 MCG/ML 1 ML VIAL IM ONE (09:14)
[2023-05-13] MEDS ORDERED: levETIRAcetam 250 MG TAB PO ONE (10:45)
--- NOTE | 2023-05-13 11:04 | MR ---
EXAMINATION TYPE: MR brain wo/w con DATE OF EXAM: 05/13/2023 10:58 AM CLINICAL INDICATION:Male, 48 years old with history of seizure; PHH, Possible seizure COMPARISON: 05/12/2023 TECHNIQUE: Multi planar, multi sequence imaging was performed through the brain including: T1, T2, In version recovery, susceptibility weighted imaging and gradient echo imaging and Diffusion weighted im aging. The patient was then given intravenous contrast and multi planar, T1 fat-saturation images wer e obtained. IV Contrast: 10ml cc Gadavist FINDINGS: The peters-white junctions, ventricular system, basal cisterns appear unremarkable. Diffusion-weighted imaging shows no evidence of restricted diffusion to suggest acute/subacute infarct. Intracranial ar terial flow voids are maintained. Midline structures show no abnormality. Minimal scattered foci of h igh T2 signal intensity are seen within the periventricular white matter. The susceptibility weighted images do not reveal any evidence for micro-hemorrhage. After administration of gadolinium, no abnor mal enhancement is seen. The bone marrow signal is within normal limits. Paranasal sinuses and mastoid air cells: No significant paranasal sinus disease. Visualized orbits: Orbital contents are intact. IMPRESSION: 1. No evidence of intracranial mass, acute/subacute infarct, or abnormal enhancement. 2. Minimal Nonspecific white matter changes, likely related to small vessel ischemic disease.,70
[2023-05-13] MEDS: FAMOTIDINE 20 MG TAB PO SCH (12:09)
--- NOTE | 2023-05-13 14:24 | P.PN ---
Subjective Progress Note Date: 05/13/23 Patient remains on the step down unit was having episodes of staring off this morning and noted to be confused afterwards. There is concern for continued seizure like activity and patient will be going for MRI and follow up EEG. EEG done yesterday is negative for epileptiform activity. Neurology following closely. Review of Systems Constitutional: Denied any fatigue denied any fever. Cardio vascular: denied any chest pain, palpitations Gastrointestinal: denied any nausea, vomiting, diarrhea Pulmonary: Denied any shortness of breath cough Neurologic denied any new focal deficits All inpatient medications were reviewed and appropriate changes in these medications as dictated in the interval history and assessment and plan. PHYSICAL EXAMINATION: GENERAL: The patient is alert and oriented x3, not in any acute distress. Well developed, well nourished. HEENT: Pupils are round and equally reacting to light. EOMI. No scleral icterus. No conjunctival pallor. Normocephalic, atraumatic. No pharyngeal erythema. No thyromegaly. CARDIOVASCULAR: S1 and S2 present. No murmurs, rubs, or gallops. PULMONARY: Chest is clear to auscultation, no wheezing or crackles. ABDOMEN: Soft, nontender, nondistended, normoactive bowel sounds. No palpable organomegaly. MUSCULOSKELETAL: No joint swelling or deformity. EXTREMITIES: No cyanosis, clubbing, or pedal edema. NEUROLOGICAL: Gross neurological examination did not reveal any focal deficits. SKIN: No rashes. Assessment New onset seizure activity Metabolic acidosis likely due to lactic acidosis from seizure like activity Fever and febrile illness in the outpatient setting Vitamin B12 deficiency Athlete's foot. History of atrial fibrillation, reported per patient Reported history of ALBA Hypertension Alcohol abuse, daily Marijuana use Hypothyroidism Obesity GI prophylaxis DVT prophylaxis Full Code Plan Vitamin B12 IM daily ordered Pending brain MRI and follow up EEG Patient to continue on oral keppra BID Continue on synthroid same dose, TSH within normal limits ID following and work up essentially negative, procalcitonin is negative patient is monitored off antibiotics and fever has resolved at this time Continue nystatin BID for the athlete's foot. Cardiology recommending event monitor which will be placed prior to discharge with no definitive diagnosis of atrial fibrillation. The impression and plan of care has been dictated by Juju Zhang, Nurse Practitioner as directed. Dr. eNetu MD I have performed a history and physical examination and medical decision making of this patient, discussed the same with the dictator, and agree with the dictators assessment and plan as written, documented as a scribe. Based on total visit time, I have performed more than 50% of this visit. Objective - Vital Signs Vital signs: Vital Signs Temp 98.1 F 05/13/23 11:57 Pulse 71 05/13/23 13:23 Resp 17 05/13/23 11:57 BP 129/71 05/13/23 11:57 Pulse Ox 96 05/13/23 11:57 FiO2 Intake & Output 05/12/23 05/13/23 05/13/23 18:59 06:59 18:59 Intake Total 118 220 Balance 118 220 Weight 99.79 kg Intake: Oral 118 220 Other: Voiding Method Toilet Toilet Toilet # Voids 0 1 1 - Labs CBC & Chem 7: 05/12/23 05:27 05/13/23 06:22 Labs: Abnormal Lab Results - Last 24 Hours (Table) 05/12/23 05/13/23 Range/Units 14:45 06:22 Sodium 133 L (137-145) mmol/L Carbon Dioxide 19 L (22-30) mmol/L BUN 6 L (9-20) mg/dL Creatinine 0.61 L (0.66-1.25) mg/dL C-Reactive Protein 1.7 H (<1.0) mg/dL Vitamin B12 <150.0 L (200.0-944.0) pg/mL Assessment and Plan Time with Patient: Less than 30
[2023-05-13] MEDS: TAMSULOSIN 0.4 MG CAP.ER.24H PO SCH (16:02)
--- NOTE | 2023-05-13 17:56 | P.PN ---
Subjective Progress Note Date: 05/03/23 On follow-up with the patient and early in the morning today the patient had an episode of staring off the nurse was concerned about a seizure. As a result nurse gave him Ativan 1 mg. Upon seeing him he was somewhat slow responding. Objective - Vital Signs Vital signs: Vital Signs Temp 98.9 F 05/13/23 15:38 Pulse 70 05/13/23 15:38 Resp 17 05/13/23 15:38 BP 165/70 05/13/23 15:38 Pulse Ox 97 05/13/23 15:38 FiO2 Intake & Output 05/12/23 05/13/23 05/13/23 18:59 06:59 18:59 Intake Total 118 220 Balance 118 220 Weight 99.79 kg Intake: Oral 118 220 Other: Voiding Method Toilet Toilet Toilet # Voids 0 1 1 - Exam Gen.: Patient is lying in bed and that does not appear in acute distress Neuro-: Limited because of his cooperation condition. Patient is drowsy but is misbah quickly couple to voice. He is oriented to self and he correctly stated current year. He is able to follow simple commands but very slow following commands. Pupils are round equal reactive to light. Patient's straight tracking throughout. Motor: In bilateral upper etc. above gravity. No resting tremor or jerking the extremities. Some of the workup during his hospital visit consisted of: Patient is afebrile. white Blood cell is 10.9 otherwise and it's the unremarkable. CRP is less than 1.7. Vitamin B-12 is less than 150 Folate is 10.60 TSH is a 0.928 HSV 1 and 2 IgM and IgG are negative. Urine drug screen is positive for marijuana otherwise dresses not detected and serum alcohol was less than 10. CT of the head is reported as no acute intracranial process. I personally reviewed the CT head I agree there is no acute or subacute ischemia, there is no any significant bleed, I don't appreciate any mass or any herniation. Routine EEG is abnormal. The back was told is normal. There is no focal slowing, epileptiform discharges or seizure on the EEG. Excessive beta activity is likely due to medication effect (Ativan). MR the brain is reported as no evidence of intracranial mass, acute/subacute infarct or abnormal enhancement. Minimal nonspecific white matter changes, likely related to small vessel ischemic disease. - Labs CBC & Chem 7: 05/12/23 05:27 05/13/23 06:22 Labs: Abnormal Lab Results - Last 24 Hours (Table) 05/12/23 05/13/23 Range/Units 14:45 06:22 Sodium 133 L (137-145) mmol/L Carbon Dioxide 19 L (22-30) mmol/L BUN 6 L (9-20) mg/dL Creatinine 0.61 L (0.66-1.25) mg/dL Vitamin B12 <150.0 L (200.0-944.0) pg/mL Assessment and Plan Assessment: This is a 48-year-old gentleman with not been feeling well since this past Thursday and had low-grade fever and had the decrease in all call consumption since he has not been feeling well recently but yesterday he had probably about 6-8 cans of beers and the yesterday he's been having the 3 episode of blank stare with confusion but refused come to the hospital. The patient had the 4 witnessed generalized tonic-clonic seizure according to the . Patient does not have any history of prior seizures in the past. New onset seizure and seems the patient has clinical status epilepticus that resolved: Unsure exactly the etiology but B12 deficiency can lead to seizure Unsure if there is a component of alcohol withdrawal since the patient has not been drinking call for the last couple days and his alcohol level was less than 10. Today patient had episode of staring off and upon examining him he was very slow in responding. Routine EEG there is no seizure discharges. MRI of the brain is unremarkable. Low-grade fever this past week reported by his that resolved: Unsure exactly etiology. So far he's been afebrile and wbc is 10.9K Vitamin B12 deficiency less than 150 Hypertension hypothyroidism ALBA Alcohol use Plan: I ordered a repeat EEG since the patient's having further staring off. We'll increase the Keppra from 500 mg every 12 hours which was started during his hospital visit to 1000 mg every 12 hours. Patient is on Ativan 1 mg every 4 hours when necessary for seizure So far the patient has been afebrile and his white blood cell is not significant. I consulted IR for lumbar puncture. ID is on board Seizure precautions Seizure pads On thiamine 100mg daily. For his vitamin B12 deficiency he received the vitamin B12 IM 1000 g once today and I also gave him an additional dose for tomorrow as well as Thursday. After that recommend at thousand micrograms IM every week for 4 weeks. I'll defer the workup of his vitamin B-12 deficiency to the primary team He was counseled on alcohol cessation Patient was notified because his seizures, to avoid driving for 6 month until seizure-free, avoid heights, avoids swimming unassisted or using heavy machinery. Defer the rest of the medical management to primary team. The plan is discussed with patient and his nurse. Dr. Winslow will resume neurology service tomorrow A.M. Time with Patient: Less than 30
--- NOTE | 2023-05-14 01:52 | EEG ---
ELECTROENCEPHALOGRAM REPORT CLINICAL HISTORY: This is a 48-year-old gentleman, who presented to emergency department because of seizure-like activity, who is having recurrent blank stares. The video EEG is obtained to evaluate for seizure epileptiform activity. RELEVANT MEDICATIONS: 1. Keppra. 2. Ativan. EEG TYPE: A routine 21-channel EEG with video using the 10/20 electrode placement system. DESCRIPTION: Wakefulness and drowsiness are obtained. During brief awake state, the posterior- dominant rhythm consists of low voltage of 8.5 Hz activity. There is no physiological stage 2 sleep architecture. There is significant delta slowing over the left temporal region. There is diffuse excessive beta activity. Interictal and ictal are none. ACTIVATION PROCEDURE: Photic stimulation and hyperventilation are not performed. CLINICAL INTERPRETATION: This is an abnormal routine EEG. The focal slowing over the left restoration is suggestive of focal cerebral dysfunction. The excessive beta activity is likely due to medication effect (Ativan). Otherwise, the background is normal, there is no epileptiform discharge, or seizure on the EEG. Clinical correlation is recommended. MMODL / IJN: [id number] /
[2023-05-14] MEDS: LEVOTHYROXINE 100 MCG TAB PO SCH (04:48)
[2023-05-14] MEDS: lisinopriL 10 MG TAB PO SCH (04:48)
[2023-05-14] MEDS: NYSTATIN 100,000UNIT/GM CREAM 30 GM TUBE TOPICAL SCH ×2 (07:59→21:38)
[2023-05-14] MEDS: FAMOTIDINE 20 MG TAB PO SCH (07:59)
[2023-05-14] MEDS: levETIRAcetam 500 MG TAB PO SCH ×2 (07:59→21:37)
[2023-05-14] MEDS: CYANOCOBALAMIN 1,000 MCG/ML 1 ML VIAL IM SCH (07:59)
[2023-05-14] MEDS: THIAMINE 100 MG TAB PO SCH (07:59)
[2023-05-14 09:57] LABS: African American GFR (CKD) >90 (>60 ml/min/1.73 sqM); Anion Gap 10 mmol/L; Blood Urea Nitrogen 6 mg/dL (9-20); Calcium 9.4 mg/dL (8.4-10.2); Carbon Dioxide 24 mmol/L (22-30); Chloride 103 mmol/L (98-107); Glucose 120 mg/dL (74-99); Non-African American GFR(CKD) >90 (>60 ml/min/1.73 sqM); Potassium 3.9 mmol/L (3.5-5.1); Sodium 137 mmol/L (137-145)
[2023-05-14] MEDS ORDERED: THIAMINE 100 MG/ML 2 ML VIAL IM STA (12:20)
[2023-05-14] MEDS ORDERED: LORazepam 2 MG/ML INJ IV PRN (12:20)
[2023-05-14] MEDS: LORazepam 2 MG/ML INJ IV PRN ×3 (12:29→16:39)
--- NOTE | 2023-05-14 12:45 | P.PN ---
Subjective Progress Note Date: 05/14/23 Patient remains on the step down unit was having episodes of staring off this morning and noted to be confused afterwards. There is concern for continued seizure like activity and patient will be going for MRI and follow up EEG. EEG done yesterday is negative for epileptiform activity. Neurology following closely. 05/14/2023 EEG yesterday shows focal slowing over the left temporal lobe. Patient also had MRI negative for acute findings. Neurology following closely. Remains on oral keppra. Patient likely going through alcohol withdrawal seizures. Review of Systems Constitutional: Denied any fatigue denied any fever. Cardio vascular: denied any chest pain, palpitations Gastrointestinal: denied any nausea, vomiting, diarrhea Pulmonary: Denied any shortness of breath cough Neurologic denied any new focal deficits All inpatient medications were reviewed and appropriate changes in these medications as dictated in the interval history and assessment and plan. PHYSICAL EXAMINATION: GENERAL: The patient is alert and oriented x3, not in any acute distress. Well developed, well nourished. HEENT: Pupils are round and equally reacting to light. EOMI. No scleral icterus. No conjunctival pallor. Normocephalic, atraumatic. No pharyngeal erythema. No thyromegaly. CARDIOVASCULAR: S1 and S2 present. No murmurs, rubs, or gallops. PULMONARY: Chest is clear to auscultation, no wheezing or crackles. ABDOMEN: Soft, nontender, nondistended, normoactive bowel sounds. No palpable organomegaly. MUSCULOSKELETAL: No joint swelling or deformity. EXTREMITIES: No cyanosis, clubbing, or pedal edema. NEUROLOGICAL: Gross neurological examination did not reveal any focal deficits. SKIN: No rashes. Assessment New onset seizure activity likely from acute alcohol withdrawal Metabolic acidosis likely due to lactic acidosis from seizure like activity Fever and febrile illness in the outpatient setting Vitamin B12 deficiency Athlete's foot. History of atrial fibrillation, reported per patient Reported history of ALBA Hypertension Alcohol abuse, daily Marijuana use Hypothyroidism Obesity GI prophylaxis DVT prophylaxis Full Code Plan Vitamin B12 IM daily ordered Patient to continue on oral keppra BID Continue on synthroid same dose, TSH within normal limits ID following and work up essentially negative, procalcitonin is negative patient is monitored off antibiotics and fever has resolved at this time Continue nystatin BID for the athlete's foot. Started on oral ativan ciwa protocol Stop lisinopril and change to amlodipine. Cardiology recommending event monitor which will be placed prior to discharge with no definitive diagnosis of atrial fibrillation. The impression and plan of care has been dictated by Juju Zhang, Nurse Practitioner as directed. Dr. Zeke MD I have performed a history and physical examination and medical decision making of this patient, discussed the same with the dictator, and agree with the dictators assessment and plan as written, documented as a scribe. Based on total visit time, I have performed more than 100% of this visit. Objective - Vital Signs Vital signs: Vital Signs Temp 97.7 F 05/13/23 19:55 Pulse 85 05/14/23 04:45 Resp 16 05/14/23 04:45 BP 142/96 05/14/23 04:45 Pulse Ox 98 05/14/23 04:45 FiO2 Intake & Output 05/13/23 05/14/23 05/14/23 18:59 06:59 18:59 Intake Total 220 110 Balance 220 110 Intake: Oral 220 110 Other: Voiding Method Toilet Toilet # Voids 2 2 - Labs CBC & Chem 7: 05/12/23 05:27 05/14/23 08:31 Labs: Microbiology - Last 24 Hours (Table) 05/12/23 14:45 Blood Culture - Preliminary Blood Assessment and Plan Time with Patient: Less than 30
--- NOTE | 2023-05-14 12:54 | P.PN ---
Subjective Progress Note Date: 05/13/23 Principal diagnosis: Reason for follow-up is fever and athlete's foot Patient is a 48-year-old male with a past medical history significant for hypertension presenting to the ER for evaluation of new onset seizure, apparently Patient did have low-grade fever at home concern for possible infectious etiology also evidence of athlete's foot. On today's evaluation that is 05/13/2023, the patient is afebrile today, the patient is breathing comfortably on room air and the patient denies any shortness of breath, the patient denies chest pain or any cough , patient denies abdominal pain, no nausea/vomiting and no diarrhea No CBC was done today, creatinine 0.61 CRP is 1.7 and HSV serology was negative Objective - Vital Signs Vital signs: Vital Signs Temp 98.8 F 05/13/23 08:39 Pulse 100 05/13/23 08:39 Resp 16 05/13/23 08:39 BP 121/75 05/13/23 08:39 Pulse Ox 95 05/13/23 08:39 FiO2 Intake & Output 05/12/23 05/13/23 05/13/23 18:59 06:59 18:59 Intake Total 118 110 Balance 118 110 Weight 99.79 kg Intake: Oral 118 110 Other: Voiding Method Toilet Toilet # Voids 0 1 1 - Exam GENERAL DESCRIPTION: A middle-aged male lying in bed in no distress RESPIRATORY SYSTEM: Unlabored breathing , clear to auscultation anteriorly HEART: S1 S2 regular rate and rhythm , ABDOMEN: Soft , no tenderness EXTREMITIES: Athletes foot in between the toes no cellulitis - Labs CBC & Chem 7: 05/12/23 05:27 05/14/23 08:31 Labs: Abnormal Lab Results - Last 24 Hours (Table) 05/12/23 05/13/23 Range/Units 14:45 06:22 Sodium 133 L (137-145) mmol/L Carbon Dioxide 19 L (22-30) mmol/L BUN 6 L (9-20) mg/dL Creatinine 0.61 L (0.66-1.25) mg/dL C-Reactive Protein 1.7 H (<1.0) mg/dL Vitamin B12 <150.0 L (200.0-944.0) pg/mL Assessment and Plan (1) Athletes foot Current Visit: Yes Status: Acute Code(s): B35.3 - TINEA PEDIS SNOMED Code(s): 2749423 Plan: 1patient presented hospital with a seizure activity patient apparently mention he did have a fever however no fever and recorded since being in the hospital patient did not have any leukocytosis no headache, neck rigidity or any confusion to be suspicious for underlying meningitis/encephalitis 2-patient did have evidence of athlete's foot but no evidence of any cellulitis 3-patient did have mildly elevated inflammatory markers however HSV serology is negative 4Patient to continue with nystatin cream in between the toes twice a day 5-await MRI, may need LP if the neurological symptoms persist and MRI is negative Dictation was produced using [employer] dictation software. please excuse any grammatical, word or spelling errors. Time with Patient: Less than 30
--- NOTE | 2023-05-14 14:12 | P.PN ---
Subjective Progress Note Date: 05/14/23 Principal diagnosis: Reason for follow-up is fever and athlete's foot Patient is a 48-year-old male with a past medical history significant for hypertension presenting to the ER for evaluation of new onset seizure, apparently Patient did have low-grade fever at home concern for possible infectious etiology also evidence of athlete's foot. On today's evaluation that is 05/14/2023, the patient continues to be, the patient is breathing comfortably on room air , patient been slightly more restless today and has been attempting to leave the hospital no vomiting diarr hea or any other changes reported by the nursing staff No CBC was done today, creatinine 0.65 CRP is 1.7 and HSV serology was negative Objective - Vital Signs Vital signs: Vital Signs Temp 98.3 F 05/14/23 12:00 Pulse 111 H 05/14/23 12:00 Resp 18 05/14/23 12:00 BP 131/84 05/14/23 12:00 Pulse Ox 99 05/14/23 12:00 FiO2 Intake & Output 05/13/23 05/14/23 05/14/23 18:59 06:59 18:59 Intake Total 220 335 Balance 220 335 Intake: Oral 220 335 Other: Voiding Method Toilet Toilet Toilet # Voids 2 2 - Exam GENERAL DESCRIPTION: A middle-aged male lying in bed in no distress RESPIRATORY SYSTEM: Unlabored breathing , clear to auscultation anteriorly HEART: S1 S2 regular rate and rhythm , ABDOMEN: Soft , no tenderness EXTREMITIES: Athletes foot in between the toes no cellulitis - Labs CBC & Chem 7: 05/12/23 05:27 05/14/23 08:31 Labs: Abnormal Lab Results - Last 24 Hours (Table) 05/14/23 Range/Units 08:31 BUN 6 L (9-20) mg/dL Creatinine 0.65 L (0.66-1.25) mg/dL Glucose 120 H (74-99) mg/dL Microbiology - Last 24 Hours (Table) 05/12/23 14:45 Blood Culture - Preliminary Blood Assessment and Plan (1) Athletes foot Current Visit: Yes Status: Acute Code(s): B35.3 - TINEA PEDIS SNOMED Code(s): 2589206 Plan: 1patient presented hospital with a seizure activity patient apparently mention he did have a fever however no fever and recorded since being in the hospital patient did not have any leukocytosis no headache, neck rigidity or any confusion to be suspicious for underlying meningitis/encephalitis 2-patient did have evidence of athlete's foot but no evidence of any cellulitis 3-patient did have mildly elevated inflammatory markers however HSV serology is negative 4Patient to continue with nystatin cream in between the toes twice a day 5MRI of the brain was negative for any acute findings keeping in mind his the restlessness and some confusion will benefit from lumbar puncture which has been ordered at the bedside questions were answered Dictation was produced using [employer] dictation software. please excuse any g rammatical, word or spelling errors. Time with Patient: Less than 30
[2023-05-14] MEDS ORDERED: LIDOCAINE 1% INJ 10MG/ML (20 ML MDV) ONE (17:35)
[2023-05-14] MEDS: TAMSULOSIN 0.4 MG CAP.ER.24H PO SCH (18:32)
[2023-05-14 18:34] LABS: Appearance,CSF Clear; CSF Tube Number 4; CSF Tube Volume 3.5
[2023-05-14 18:39] LABS: Glucose,CSF 73 mg/dL (40-70); Total Protein,CSF 57 mg/dL (12-60)
[2023-05-14 19:02] LABS: Nucleated Cells, CSF 0 u/L (0-5); Red Blood Cell,CSF 0 u/L (0-10)
[2023-05-15] MEDS: LORazepam 2 MG/ML INJ IV PRN (01:25)
[2023-05-15] MEDS: LEVOTHYROXINE 100 MCG TAB PO SCH (03:49)
[2023-05-15] MEDS: levETIRAcetam 500 MG TAB PO SCH ×2 (09:06→19:48)
[2023-05-15] MEDS: CYANOCOBALAMIN 1,000 MCG/ML 1 ML VIAL IM SCH (09:06)
[2023-05-15] MEDS: amLODIPine 5 MG TAB PO SCH (09:06)
[2023-05-15] MEDS: THIAMINE 100 MG TAB PO SCH (09:06)
[2023-05-15] MEDS: FAMOTIDINE 20 MG TAB PO SCH (09:06)
[2023-05-15] MEDS: NYSTATIN 100,000UNIT/GM CREAM 30 GM TUBE TOPICAL SCH ×2 (09:07→19:49)
--- NOTE | 2023-05-15 09:21 | P.PN ---
Subjective Progress Note Date: 05/14/23 Patient was initially seen by Dr. Randy Levy. Please refer to his note for details. Patient is a 48-year-old male with new onset seizure. Patient had a repeat EEG and showed slowing over the left temporal but no seizure or discharges. Otherwise patient has low grade fever as outpatient so infectious disease was consulted. IR has been consulted for LP. Dr. Levy increase the dose of Keppra to 1 g twice a day. Patient also diagnosed with vitamin B12 deficiency. MRI of the brain is negative. Patient's was present at this time. She mentions that patient does have history of heavy drinking of alcoholism. She agrees that patient may be withdrawing from alcohol. But he has been drinking like this all his life. Never had any seizure. He was started on some blood pressure medication 2 weeks ago. He ended up with about 4 seizures in 2 hours period of time, for which he presented to the hospital. The first 2 seizures happened at home, then the third one when EMS was there in the fourth seizure while in the ER. Patient's states that it seizure was worse than the prior one. He did not bite his tongue. He was never confused until he had a seizure. He has a delayed respons e if any questions asked. Patient's mentions that he drinks about 3-4 tall boys, which is equivalent to about 8 small can of beers 2-3 days during the weekdays. On the weekend he drinks more heavily, about 24 small cans of beer, spend over 2 days of weekend. Patient at present complains of headache 5/10, frontal region with nausea but no vomiting. He does feels light and noise sensitive. Some of the workup during his hospital visit consisted of: Patient is afebrile. white Blood cell is 10.9 otherwise and it's the unremarkable. CRP is less than 1.7. Vitamin B-12 is less than 150 Folate is 10.60 TSH is a 0.928 HSV 1 and 2 IgM and IgG are negative. Urine drug screen is positive for marijuana otherwise dresses not detected and serum alcohol was less than 10. CT of the head is reported as no acute intracranial process. I personally reviewed the CT head I agree there is no acute or subacute ischemia, there is no any significant bleed, I don't appreciate any mass or any herniation. Routine EEG is abnormal. The back was told is normal. There is no focal slowing, epileptiform discharges or seizure on the EEG. Excessive beta activity is likely due to medication effect (Ativan). MR the brain is reported as no evidence of intracranial mass, acute/subacute infarct or abnormal enhancement. Minimal nonspecific white matter changes, likely related to small vessel ischemic disease. Objective - Vital Signs Vital signs: Vital Signs Temp 98.3 F 05/14/23 12:00 Pulse 111 H 05/14/23 14:00 Resp 18 05/14/23 14:00 BP 131/84 05/14/23 12:00 Pulse Ox 99 05/14/23 12:00 FiO2 Intake & Output 05/13/23 05/14/23 05/14/23 18:59 06:59 18:59 Intake Total 220 335 Balance 220 335 Intake: Oral 220 335 Other: Voiding Method Toilet Toilet Toilet # Voids 2 2 - Exam Patient is alert and awake, but appears somewhat encephalopathic, slow responses. Speech and language functions are normal. Visual schilling are full, face is symmetric. Muscle strength is normal. No obvious ataxia. Sensations a re equal. Neck is supple - Labs CBC & Chem 7: 05/12/23 05:27 05/14/23 08:31 Labs: Abnormal Lab Results - Last 24 Hours (Table) 05/14/23 Range/Units 08:31 BUN 6 L (9-20) mg/dL Creatinine 0.65 L (0.66-1.25) mg/dL Glucose 120 H (74-99) mg/dL Microbiology - Last 24 Hours (Table) 05/12/23 14:45 Blood Culture - Preliminary Blood Assessment and Plan Assessment: New onset seizure and seems the patient has clinical status epilepticus that resolved: Most likely due to alcohol withdrawal. Mild encephalopathy, headache, with recent low-grade fever, abnormal EEG, rule out encephalitis. Vitamin B12 deficiency < 150 Hypertension hypothyroidism ALBA Alcohol use Plan: EEG revealed focal slowing over the left temporal region, suggestive of focal cerebral dysfunction. Excessive beta activity is likely due to medication effect. Otherwise the background is normal and there is no epileptiform discharges or seizures on the EEG. Patient currently on Keppra, and dose increased from 500 mg every 12 hours which was started during his hospital visit to 1000 mg every 12 hours. Patient is on Ativan 1 mg every 4 hours when necessary for seizure Patient complaining of 5/10 headache. His last white cells was 10.9. Infectious disease has recommended lumbar puncture. I discussed with patient and his , and both of them consented for the lumbar puncture. Seizure precautions On thiamine 100mg daily. For his vitamin B12 deficiency he received the vitamin B12 IM 1000 g 2 doses. After that recommend 1000 g IM every week for 4 weeks. I'll defer the workup of his vitamin B-12 deficiency to the primary team He was counseled on alcohol cessation Patient was notified because his seizures, to avoid driving for 6 month until seizure-free, avoid heights, avoids swimming unassisted or using heavy machinery. Defer the rest of the medical management to primary team.
--- NOTE | 2023-05-15 09:25 | P.PCN ---
Date of Procedure: 05/14/23 Preoperative Diagnosis: Cephalalgia, seizure, possible meningitis/encephalitis Postoperative Diagnosis: Possible meningitis encephalitis Procedure(s) Performed: Lumbar puncture Anesthesia: local Surgeon: Nixon Winslow Estimated Blood Loss (ml): 0 Pathology: none sent Condition: stable Disposition: floor Indications for Procedure: Cephalgia, new onset seizure, abnormal EEG, rule out encephalitis/meningitis Description of Procedure: Informed consent was obtained from patient and also with patient's . Very detailed risks and benefits of the procedure, and the indication of procedure was explained to the patient in detail in the presence of nurse. Patient was informed of the risk of infection, bleeding, numbness, back pain, and the features of post spinal headache and the treatment. Patient was placed in the sitting position on the side of the bed. The procedure was performed under strict aseptic conditions. L4 lumbar space was identified and marked. Low back region was sterilized with ChloraPrep and then with Betadine, and anesthetized with 1% lidocaine. A spinal needle 22-gauge, 3.5 inch inserted at L4 lumbar space. I was able to enter subarachnoid space in 1 pass. The spinal fluid was atraumatic, colorless and clear. Opening pressure was 44 cm water, but was checked in a sitting position. About 12-15 mL of spinal fluid was collected in 4 tubes. Stylette was reintroduced, spinal needle withdrawn. Band-Aid applied. Patient was recommended to lay flat for half an hour. Patient tolerated the procedure very well.
[2023-05-15 09:39] LABS: African American GFR (CKD) >90 (>60 ml/min/1.73 sqM); Anion Gap 9 mmol/L; Blood Urea Nitrogen 7 mg/dL (9-20); Calcium 9.2 mg/dL (8.4-10.2); Carbon Dioxide 23 mmol/L (22-30); Chloride 103 mmol/L (98-107); Glucose 96 mg/dL (74-99); Non-African American GFR(CKD) >90 (>60 ml/min/1.73 sqM); Potassium 3.8 mmol/L (3.5-5.1); Sodium 135 mmol/L (137-145)
[2023-05-15 09:58] LABS: HCT 43.8 % (39.0-53.0); HGB 15.2 gm/dL (13.0-17.5); MCH 31.8 pg (25.0-35.0); MCHC 34.7 g/dL (31.0-37.0); MCV 91.9 fL (80.0-100.0); Mean Platelet Volume 7.8; Platelet Count 247 k/uL (150-450); RBC 4.77 m/uL (4.30-5.90); RDW 12.1 % (11.5-15.5); WBC 8.9 k/uL (3.8-10.6)
[2023-05-15 10:49] LABS: C Reactive Protein 1.3 mg/dL (<1.0)
[2023-05-15] MEDS ORDERED: hydrALAZINE HCL 20 MG/ML 1 ML VIAL IVP PRN (13:11)
--- NOTE | 2023-05-15 13:16 | P.PN ---
Subjective Progress Note Date: 05/15/23 05/13/23 Patient remains on the step down unit was having episodes of staring off this morning and noted to be confused afterwards. There is concern for continued seizure like activity and patient will be going for MRI and follow up EEG. EEG done yesterday is negative for epileptiform activity. Neurology following closely. 05/14/[address] Vale: EEG yesterday shows focal slowing over the left temporal lobe. Patient also had MRI negative for acute findings. Neurology following closely. Remains on oral keppra. Patient likely going through alcohol withdrawal seizures. 05/15/23: Dr Alanis Covering Dr Vale: Patient seen and evaluated bedside, care plan discussed with family at bedside, patient alert and oriented to person place and situation mentation has improved, followed by neurology as well continue patient on alcohol withdrawal protocol encourage oral intake, CBC with in normal limits, sodium improving 135 CRP elevated at 1.3. Patient is status post lumbar puncture, followed by multiple consultants including neurology and infectious disease Assessment * New onset seizure activity likely from acute alcohol withdrawal * Metabolic acidosis likely due to lactic acidosis from seizure like activity * Fever and febrile illness in the outpatient setting * Vitamin B12 deficiency * Athlete's foot. * History of atrial fibrillation, reported per patient * Reported history of ALBA * Hypertension * Alcohol abuse, daily * Marijuana use * Hypothyroidism * Obesity * In regards to seizure like activity, patient seen by neurology continue patient on Keppra, continue to monitor for withdrawal, continue with vitamin B12 supplementation * In regards to febrile illness, status post lumbar puncture, followed by infectious disease no concern for encephalitis at this point * In regards to hypothyroid continue Synthyroid * In regards to athlete's foot continue patient on nystatin, seen by infectious disease * In regards to hypertension continue amlodipine * Will need physical therapy occupational therapy evaluation as well Objective - Vital Signs Vital signs: Vital Signs Temp 98.3 F 05/15/23 12:00 Pulse 80 05/15/23 12:00 Resp 16 05/15/23 12:00 BP 167/102 05/15/23 12:00 Pulse Ox 97 05/15/23 12:00 FiO2 Intake & Output 05/14/23 05/15/23 05/15/23 18:59 06:59 18:59 Intake Total 335 120 Output Total 700 Balance 335 -700 120 Intake: Oral 335 120 Output: Urine 700 Other: Voiding Method Toilet Toilet Toilet # Voids 3 1 2 - Labs CBC & Chem 7: 05/15/23 08:00 05/15/23 08:00 Labs: Abnormal Lab Results - Last 24 Hours (Table) 05/14/23 05/15/23 Range/Units 17:46 08:00 Sodium 135 L (137-145) mmol/L BUN 7 L (9-20) mg/dL Creatinine 0.57 L (0.66-1.25) mg/dL C-Reactive Protein 1.3 H (<1.0) mg/dL CSF Glucose 73 H (40-70) mg/dL Microbiology - Last 24 Hours (Table) 05/12/23 14:45 Blood Culture - Preliminary Blood
--- NOTE | 2023-05-15 15:17 | P.PN ---
Subjective Progress Note Date: 05/15/23 Principal diagnosis: Reason for follow-up is fever and athlete's foot Patient is a 48-year-old male with a past medical history significant for hypertension presenting to the ER for evaluation of new onset seizure, apparently Patient did have low-grade fever at home concern for possible infectious etiology also evidence of athlete's foot. On today's evaluation that is 05/15/2023, the patient denies any fever or any chills, the patient is breathing comfortably on room air without the need for supplemental oxygen, patient denies chest pain shortness of breath and no significant cough or sputum production, patient denies Abdominal pain, no nausea/vomiting and denies having any diarrhea White count is 8.9, creatinine is 0.57 CRP is 1.7 and HSV serology was negative, patient did have an LP CSF white count is 0 glucose is 73 protein is 57 Objective - Vital Signs Vital signs: Vital Signs Temp 98.3 F 05/15/23 12:00 Pulse 80 05/15/23 12:00 Resp 16 05/15/23 12:00 BP 167/102 05/15/23 12:00 Pulse Ox 97 05/15/23 12:00 FiO2 Intake & Output 05/14/23 05/15/23 05/15/23 18:59 06:59 18:59 Intake Total 335 120 Output Total 700 Balance 335 -700 120 Intake: Oral 335 120 Output: Urine 700 Other: Voiding Method Toilet Toilet Toilet # Voids 3 1 2 - Exam GENERAL DESCRIPTION: A middle-aged male lying in bed in no distress RESPIRATORY SYSTEM: Unlabored breathing , clear to auscultation anteriorly HEART: S1 S2 regular rate and rhythm , ABDOMEN: Soft , no tenderness EXTREMITIES: Athletes foot in between the toes no cellulitis - Labs CBC & Chem 7: 05/15/23 08:00 05/15/23 08:00 Labs: Abnormal Lab Results - Last 24 Hours (Table) 05/14/23 05/15/23 Range/Units 17:46 08:00 Sodium 135 L (137-145) mmol/L BUN 7 L (9-20) mg/dL Creatinine 0.57 L (0.66-1.25) mg/dL C-Reactive Protein 1.3 H (<1.0) mg/dL CSF Glucose 73 H (40-70) mg/dL Microbiology - Last 24 Hours (Table) 05/12/23 14:45 Blood Culture - Preliminary Blood Assessment and Plan (1) Athletes foot Current Visit: Yes Status: Acute Code(s): B35.3 - TINEA PEDIS SNOMED Code(s): 3026272 Plan: 1patient presented hospital with a seizure activity patient apparently mention he did have a fever however no fever and recorded since being in the hospital patient did not have any leukocytosis no headache, neck rigidity or any confusion to be suspicious for underlying meningitis/encephalitis 2-patient did have evidence of athlete's foot but no evidence of any cellulitis 3-patient did have mildly elevated inflammatory markers however HSV serology is negative, patient did have a negative CSF making encephalitis or meningitis to be less likely 4Patient to continue with nystatin cream in between the toes twice a day Dictation was produced using [employer] dictation software. please excuse any grammatical, word or spelling errors. Time with Patient: Less than 30
--- NOTE | 2023-05-15 17:27 | P.PN ---
Subjective Progress Note Date: 05/15/23 05/15/2023: Patient was seen for a follow-up. Patient is sitting in the bed, appears very comfortable. Patient's sister was present. Patient feels much better today. Denies any headache. 05/14/2023: Patient was initially seen by Dr. Randy Levy. Please refer to his note for details. Patient is a 48-year-old male with new onset seizure. Patient had a repeat EEG and showed slowing over the left temporal but no seizure or discharges. Otherwise patient has low grade fever as outpatient so infectious disease was consulted. IR has been consulted for LP. Dr. Levy increase the dose of Keppra to 1 g twice a day. Patient also diagnosed with vitamin B12 deficiency. MRI of the brain is negative. Patient's was present at this time. She mentions that patient does have history of heavy drinking of alcoholism. She agrees that patient may be withdrawing from alcohol. But he has been drinking like this all his life. Never had any seizure. He was started on some blood pressure medication 2 weeks ago. He ended up with about 4 seizures in 2 hours period of time, for which he presented to the hospital. The first 2 seizures happened at home, then the third one when EMS was there in the fourth seizure while in the ER. Patient's states that it seizure was worse than the prior one. He did not bite his tongue. He was never confused until he had a seizure. He has a delayed response if any questions asked. Patient's mentions that he drinks about 3-4 tall boys, which is equivalent to about 8 small can of beers 2-3 days during the weekdays. On the weekend he drinks more heavily, about 24 small cans of beer, spend over 2 days of weekend. Patient at present complains of headache 5/10, frontal region with nausea but no vomiting. He does feels light and noise sensitive. Some of the workup during his hospital visit consisted of: Patient is afebrile. white Blood cell is 10.9 otherwise and it's the unremarkable. CRP is less than 1.7. Vitamin B-12 is less than 150 Folate is 10.60 TSH is a 0.928 HSV 1 and 2 IgM and IgG are negative. Urine drug screen is positive for marijuana otherwise dresses not detected and serum alcohol was less than 10. CT of the head is reported as no acute intracranial process. I personally reviewed the CT head I agree there is no acute or subacute ischemia, there is no any significant bleed, I don't appreciate any mass or any herniation. Routine EEG is abnormal. The back was told is normal. There is no focal slowing, epileptiform discharges or seizure on the EEG. Excessive beta activity is likely due to medication effect (Ativan). MR the brain is reported as no evidence of intracranial mass, acute/subacute infarct or abnormal enhancement. Minimal nonspecific white matter changes, likely related to small vessel ischemic disease. Objective - Vital Signs Vital signs: Vital Signs Temp 98.1 F 05/15/23 16:00 Pulse 86 05/15/23 16:00 Resp 16 05/15/23 16:00 BP 145/101 05/15/23 16:00 Pulse Ox 98 05/15/23 16:00 FiO2 Intake & Output 05/14/23 05/15/23 05/15/23 18:59 06:59 18:59 Intake Total 335 240 Output Total 700 Balance 335 -700 240 Intake: Oral 335 240 Output: Urine 700 Other: Voiding Method Toilet Toilet Toilet # Voids 3 1 2 - Exam Patient is alert and awake, mentation much more clear. Encephalopathy has much improved. Speech and language functions are normal. Visual schilling are full, face is symmetric. Muscle strength is normal. No obvious ataxia. Sensations are equal. Neck is supple Patient walks fairly stable. - Labs CBC & Chem 7: 05/15/23 08:00 05/15/23 08:00 Labs: Abnormal Lab Results - Last 24 Hours (Table) 05/14/23 05/15/23 Range/Units 17:46 08:00 Sodium 135 L (137-145) mmol/L BUN 7 L (9-20) mg/dL Creatinine 0.57 L (0.66-1.25) mg/dL C-Reactive Protein 1.3 H (<1.0) mg/dL CSF Glucose 73 H (40-70) mg/dL Microbiology - Last 24 Hours (Table) 05/14/23 17:46 CSF Gram Stain - Preliminary Cerebral Spinal Fluid 05/12/23 14:45 Blood Culture - Preliminary Blood Assessment and Plan Assessment: New onset seizure and seems the patient has clinical status epilepticus that resolved: Most likely due to alcohol withdrawal. Mild encephalopathy, likely due to alcohol withdrawal/postictal state. Encephalitis ruled out. Vitamin B12 deficiency < 150 Hypertension hypothyroidism ALBA Alcohol use Plan: Patient's mentation has much improved. CSF showed WBC 0, RBC 0, glucose 73, proteins 57, all normal. Meningitis, encephalitis ruled out. Await MS panel, comprehensive viral detection. EEG reported by Dr. Levy revealed focal slowing over the left temporal region, suggestive of focal cerebral dysfunction. Excessive beta activity is likely due to medication effect. Otherwise the background is normal and there is no epileptiform discharges or seizures on the EEG. Patient currently on Keppra, and dose increased from 500 mg every 12 hours which was started during his hospital visit to 1000 mg every 12 hours. Patient is on Ativan 1 mg every 4 hours when necessary for seizure Seizure precautions On thiamine 100mg daily. For his vitamin B12 deficiency he received the vitamin B12 IM 1000 g 2 doses. After that recommend 1000 g IM every week for 4 weeks. I'll defer the workup of his vitamin B-12 deficiency to the primary team He was counseled on alcohol cessation Patient was notified because his seizures, to avoid driving for 6 month until seizure-free, avoid heights, avoids swimming unassisted or using heavy machinery. Defer the rest of the medical management to primary team. Neurologically clear for discharge.
[2023-05-15] MEDS: TAMSULOSIN 0.4 MG CAP.ER.24H PO SCH (17:29)
[2023-05-16] MEDS: LEVOTHYROXINE 100 MCG TAB PO SCH (03:58)
[2023-05-16 05:09] LABS: HCT 43.6 % (39.0-53.0); MCH 31.4 pg (25.0-35.0); MCHC 34.3 g/dL (31.0-37.0); MCV 91.3 fL (80.0-100.0); Mean Platelet Volume 7.7; Platelet Count 277 k/uL (150-450); RBC 4.77 m/uL (4.30-5.90); RDW 12.6 % (11.5-15.5); WBC 8.7 k/uL (3.8-10.6)
[2023-05-16 05:20] LABS: African American GFR (CKD) >90 (>60 ml/min/1.73 sqM); Anion Gap 10 mmol/L; Blood Urea Nitrogen 5 mg/dL (9-20); Calcium 9.5 mg/dL (8.4-10.2); Carbon Dioxide 22 mmol/L (22-30); Chloride 103 mmol/L (98-107); Glucose 103 mg/dL (74-99); Non-African American GFR(CKD) >90 (>60 ml/min/1.73 sqM); Phosphorus 3.6 mg/dL (2.5-4.5); Potassium 3.9 mmol/L (3.5-5.1); Sodium 135 mmol/L (137-145)
[2023-05-16 09:03] VITALS: RESP 16
[2023-05-16] MEDS: amLODIPine 5 MG TAB PO SCH (09:11)
[2023-05-16] MEDS: THIAMINE 100 MG TAB PO SCH (09:11)
[2023-05-16] MEDS: levETIRAcetam 500 MG TAB PO SCH (09:11)
[2023-05-16] MEDS: FAMOTIDINE 20 MG TAB PO SCH (09:11)
[2023-05-16] MEDS: NYSTATIN 100,000UNIT/GM CREAM 30 GM TUBE TOPICAL SCH (09:12)
--- NOTE | 2023-05-16 12:17 | P.DS ---
Providers Date of admission: 05/12/23 07:22 Expected date of discharge: 05/16/23 Attending physician: Kali Vale MD Consults: 05/12/23 07:20 Consult Physician Stat Consulting Provider: Randy Levy Consult Reason/Comments: new onset seizure Do you want consulting provider notified?: Already Contacted 05/12/23 08:50 Consult Physician Stat Consulting Provider: Jamison Clifton Consult Reason/Comments: history of afib Do you want consulting provider notified?: Yes 05/12/23 13:57 Consult Physician Routine Consulting Provider: Tae Ramires Consult Reason/Comments: low grade fever recently. unsure if ?cellulitis feet Do you want consulting provider notified?: Yes Primary care physician: Lauren Archer [facility] Course: 48-year-old gentleman with past medical history significant for hypertension, BPH, hypothyroidism, obesity, daily alcohol use, marijuana use, transferred into the ER via EMS. Significant other reported to ER that patient drank approximately 10 beers yesterday.Patient developed seizure -like activity accompanied by blank stares and snoring, multiple episodes. EMS reports upon arrival,patient was post ictal, received 2 mg of IV Ativan and 1 g of [address]ra. Brain CT negative. Patient this morning reports he drinks 4- tall boys daily, but thinks he only consumed two yesterday. Does not recall the entire event very well just remembers he felt lightheaded ,some confusion, palpitations upon walking back to his bed around 10 PM and then remembers getting up off the floor. Reports urine incontinence- states "the bed was wet". Does not recall t he downtime.On admission mild tachycardia, maintaining O2 sats in the high 90s on 5 L nasal cannula, hypertensive with blood pressure 158/98, respiratory rate 20. Afebrile, WBC 10.9. EKG sinus tachycardia, currently telemetry sinus rhythm. Hemoglobin 16.3, MCV 96.6, platelets 332, sodium 141, potassium 4.5, bicarb less than 5, anion gap unable to calculate, BUN 6, creatinine 0.76, glucose 136, magnesium 2.4, ALT 52. Toxicology screen detected THC, serum alcohol less than 10. Majority of information obtained from ER, chart and patient. 05/13/23 Patient remains on the step down unit was having episodes of staring off this morning and noted to be confused afterwards. There is concern for continued seizure like activity and patient will be going for MRI and follow up EEG. EEG done yesterday is negative for epileptiform activity. Neurology following closely. 05/14/[address] Vale: EEG yesterday shows focal slowing over the left temporal lobe. Patient also had MRI negative for acute findings. Neurology following closely. Remains on oral keppra. Patient likely going through alcohol withdrawal seizures. 05/15/23: Dr Alanis Covering Dr Vale: Patient seen and evaluated bedside, care plan discussed with family at bedside, patient alert and oriented to person place and situation mentation has improved, followed by neurology as well continue patient on alcohol withdrawal protocol encourage oral intake, CBC within normal limits, sodium improving 135 CRP elevated at 1.3. Patient is status post lumbar puncture, followed by multiple consultants including ne urology and infectious disease 05/16/23: Dr Alanis Covering Dr Vale: Patient seen and evaluated bedside, and complained with sister and [id number] has well mentation has improved significantly patient ambulated in the hallway without difficulty care plan discussed with him. Outpatient follow-up with neurology recommended will need follow-up with cardiology to picker packer in one monitor. Neurology cleared patient for discharge with outpatient follow-up. Information provided for outpatient neurology recommended follow-up with PCP post discharge. Patient counseled not to drink alcohol while on antiseizure medications. Patient also counseled no driving until cleared by cardiology PHYSICAL EXAMINATION: GENERAL: The patient is alert and oriented x3, not in any acute distress. Well developed, well nourished. HEENT: Pupils are round and equally reacting to light. EOMI. No scleral icterus. No conjunctival pallor. Normocephalic, atraumatic. No pharyngeal erythema. No thyromegaly. CARDIOVASCULAR: S1 and S2 present. No murmurs, rubs, or gallops. PULMONARY: Chest is clear to auscultation, no wheezing or crackles. ABDOMEN: Soft, nontender, nondistended, normoactive bowel sounds. No palpable organomegaly. MUSCULOSKELETAL: No joint swelling or deformity. EXTREMITIES: No cyanosis, clubbing, or pedal edema. NEUROLOGICAL: Gross neurological examination did not reveal any focal deficits. SKIN: No rashes. Assessment: Assessment * New onset seizure activity likely from acute alcohol withdrawal * Metabolic acidosis likely due to lactic acidosis from seizure like activity * Fever and febrile illness in the outpatient setting * Vitamin B12 deficiency * Athlete's foot. * History of atrial fibrillation, reported per patient * Reported history of ALBA * Hypertension * Alcohol abuse, daily * Marijuana use * Hypothyroidism * Obesity * In regards to seizure like activity, patient seen by neurology continue patient on Keppra, vitamin B12 supplementation provided, outpatient follow-up with neurology * In regards to febrile illness, status post lumbar puncture, followed by infectious disease no concern for encephalitis at this point, * In regards to hypothyroid continue Synthyroid * In regards to athlete's foot received nystatin while inpatient, seen by infectious disease * In regards to hypertension continue amlodipine * Patient to discharge home, discharged with home care Patient Condition at Discharge: Fair Plan - Discharge Summary Discharge Rx Participant: Yes New Discharge Prescriptions: New levETIRAcetam [Keppra] 1,000 mg PO Q12HR 30 Days #60 tab amLODIPine [Norvasc] 5 mg PO DAILY 30 Days #30 tab Cyanocobalamin [Vitamin B-12 Injection] 1,000 mcg SQ WEEKLY 30 Days #4 injection Continue Levothyroxine Sodium [Synthroid] 100 mcg PO DAILY@0430 Tamsulosin HCl [Flomax] 0.4 mg PO DAILY@1700 Discontinued lisinopriL [Prinivil] 10 mg PO DAILY@0430 Discharge Medication List Levothyroxine Sodium [Synthroid] 100 mcg PO DAILY@0430 05/12/23 [History] Tamsulosin HCl [Flomax] 0.4 mg PO DAILY@1700 05/12/23 [History] Cyanocobalamin [Vitamin B-12 Injection] 1,000 mcg SQ WEEKLY 30 Days #4 injection 05/16/23 [Rx] amLODIPine [Norvasc] 5 mg PO DAILY 30 Days #30 tab 05/16/23 [Rx] levETIRAcetam [Keppra] 1,000 mg PO Q12HR 30 Days #60 tab 05/16/23 [Rx] Follow up Appointment(s)/Referral(s): Lauren Archer DO [Primary Care Provider] - 1-2 days Randy Richey MD [STAFF PHYSICIAN] - 1 Week Jamison Clifton MD [STAFF PHYSICIAN] - 3 Days (Call his office to schedule an appointment, and get an Event monitor) Patient Instructions/Handouts: Seizure/Epilepsy Discharge Instructions & Follow-Up Activity/Diet/Wound Care/Special Instructions: No driving for 6 months to cleared by neurology Do not use heavy machinery, increased risk of injury Do not swim by herself due to increased risk of drowning Follow-up with neurology for clearance Discharge Disposition: HOME SELF-CARE
[2023-05-16 13:42] VITALS: BP 118/81; PULSE 91; TEMP 98.1
[2023-05-18 14:45] LABS: Immunoglobulin G 998 mg/dL (700 - 1600)
== END 2023-05-16 13:40 | disposition home or self-care (01) | DRG 101 ==
LOC: EC 04:49 → 3SCARD 07:22 → 5NMEDONC 05-16 00:30
PROVIDERS: ADMIT Family Medicine; ATTEND Family Medicine
PROC: 009U3ZX Drainage of Spinal Canal, Percutaneous Approach, Diagnostic (ICD-10-PCS; principal; 2023-05-14)
DX: G40.501 Epileptic seizures related to external causes, not intractable, with status epilepticus (principal); G93.49 Other encephalopathy; E87.20 Acidosis, unspecified; F10.288 Alcohol dependence with other alcohol-induced disorder; F10.239 Alcohol dependence with withdrawal, unspecified; G31.2 Degeneration of nervous system due to alcohol; K75.81 Nonalcoholic steatohepatitis (NASH); I48.91 Unspecified atrial fibrillation; I10 Essential (primary) hypertension; E03.9 Hypothyroidism, unspecified; E66.9 Obesity, unspecified; B35.3 Tinea pedis; E53.8 Deficiency of other specified B group vitamins; F12.90 Cannabis use, unspecified, uncomplicated; N40.0 Benign prostatic hyperplasia without lower urinary tract symptoms; R32 Unspecified urinary incontinence; R06.83 Snoring; Y90.0 Blood alcohol level of less than 20 mg/100 ml; Z79.890 Hormone replacement therapy; Z79.899 Other long term (current) drug therapy; Z28.310 Unvaccinated for COVID-19; Z68.29 Body mass index [BMI] 29.0-29.9, adult
CPT/HCPCS: 36415; 70450; 70553; 80048; 80053; 80306; 80320; 82040; 82042; 82140; 82607; 82746; 82784; 82945; 83735; 83873; 83916; 84100; 84145; 84157; 84443; 85025; 85027; 86140; 86592; 86694; 86695; 86696; 87040; 87070; 87205; 87252; 89050; 93005; 95819; 96374; 96375; 99291

== ENCOUNTER 2023-05-19 14:00 | Inpatient (IN) | payer BC ==
--- NOTE | 2023-05-19 14:33 | ED ---
General Adult HPI - General Source: patient, RN notes reviewed, old records reviewed Mode of arrival: ambulatory Limitations: no limitations <LeonDevan - Last Filed: 05/19/23 14:31> - General Source: patient, family, old records reviewed Mode of arrival: ambulatory Limitations: no limitations - History of Present Illness MD Complaint: Seizures <Kandy Tsai - Last Filed: 05/20/23 04:43> - General Chief complaint: Seizure Stated complaint: seizure issues Time Seen by Provider: 05/19/23 14:31 - History of Present Illness Initial comments: This a 40-year-old male presents emergency Department chief complaint of seizure. Patient was admitted a week ago for tonoclonic seizures. Patient was started on Keppra. Patient is having episodes where he becomes unresponsive but has no compulsions. Patient had one of these episodes at his PCP who advised h im come back to emergency department. (Devan Quintero) This is a 48-year-old male who presents to the emergency department for seizures. Patient was admitted a week ago for new onset seizures which were attributed to possible alcohol withdrawal. His Keppra was increased to 1000 mg twice daily at discharge on 05/16. Reports being compliant with his medication. Starting Thursday (05/18) patient has started to exhibit seizures where the patient's describes him as being "catatonic". He will sit there and remain unresponsive, but does not have any tonic-clonic activity. Denies any injuries. While his describes him as catatonic, this description sounds like an absence seizure. States that he had an episode during his follow-up appointment with his PCP today, and she advised they go to the emergency department for further evaluation. His last alcohol drink was 3 days ago. (Kandy Tsai) - Related Data Home Medications Medication Instructions Recorded Confirmed Levothyroxine Sodium [Synthroid] 100 mcg PO DAILY@0430 05/12/23 05/12/23 Tamsulosin HCl [Flomax] 0.4 mg PO DAILY@1700 05/12/23 05/12/23 Previous Rx's Medication Instructions Recorded Cyanocobalamin [Vitamin B-12 1,000 mcg SQ WEEKLY 30 Days #4 05/16/23 Injection] injection amLODIPine [Norvasc] 5 mg PO DAILY 30 Days #30 tab 05/16/23 levETIRAcetam [Keppra] 1,000 mg PO Q12HR 30 Days #60 tab 05/16/23 Allergies Allergy/AdvReac Type Severity Reaction Status Date / Time No Known Allergies Allergy Verified 05/19/23 14:54 Review of Systems ROS Other: All systems not noted in ROS Statement are negative. <Devan Quintero - Last Filed: 05/19/23 14:31> ROS Other: All systems not noted in ROS Statement are negative. <Kandy Tsai - Last Filed: 05/20/23 04:43> ROS Statement: Those systems with pertinent positive or pertinent negative responses have been documented in the HPI. Past Medical History Past Medical History: Hypertension Additional Past Medical History / Comment(s): irregular heartbeat dad has history of atrial fibrillation History of Any Multi-Drug Resistant Organisms: None Reported Past Surgical History: No Surgical Hx Reported Past Anesthesia/Blood Transfusion Reactions: No Reported Reaction Past Psychological History: No Psychological Hx Reported Smoking Status: Never smoker Past Alcohol Use History: Occasional Past Drug Use History: Marijuana <Devan Quintero - Last Filed: 05/19/23 14:31> General Exam <Devan Quintero - Last Filed: 05/19/23 14:31> Limitations: no limitations General appearance: alert, in no apparent distress Head exam: Present: atraumatic, normocephalic, normal inspection Eye exam: Present: normal appearance, PERRL, EOMI. Absent: scleral icterus, conjunctival injection, periorbital swelling Respiratory exam: Present: normal lung sounds bilaterally. Absent: respiratory distress, wheezes, rales, rhonchi, stridor Cardiovascular Exam: Present: regular rate, normal rhythm, normal heart sounds. Absent: systolic murmur, diastolic murmur, rubs, gallop, clicks Neurological exam: Present: alert, oriented X3, CN II-XII intact Psychiatric exam: Present: normal affect, normal mood Skin exam: Present: warm, dry, intact, normal color. Absent: rash <Kandy Tsai - Last Filed: 05/20/23 04:43> - General Exam Comments Initial Comments: Visual Physical Exam Vital signs reviewed General: Well-appearing, nontoxic, no acute distress. Head: Normocephalic, atraumatic Eyes: PERRLA, EOMI ENT: Airway patent Chest: Nonlabored breathing Skin: No visual rash, normal skin tone Neuro: Alert and oriented 3 Musculoskeletal: No gross abnormalities (Devan Quintero) Course Vital Signs 05/19/23 05/20/23 05/20/23 14:43 00:43 01:54 Temperature 98.2 F Pulse Rate 81 70 86 Respiratory 18 17 18 Rate Blood Pressure 128/82 132/87 101/68 O2 Sat by Pulse 98 98 99 Oximetry 05/20/23 03:30 Temperature Pulse Rate 66 Respiratory 18 Rate Blood Pressure 103/68 O2 Sat by Pulse 98 Oximetry Medical Decision Making <Devan Quintero - Last Filed: 05/19/23 14:31> - Lab Data Result diagrams: 05/19/23 15:03 05/19/23 15:45 <Kandy Tsai - Last Filed: 05/20/23 04:43> - Medical Decision Making I completed the quick note portion of this chart signed Devan Quintero PA-C (Devan Quintero) This is a 48-year-old male who presents to the emergency department for seizure activity. Was pt. sent in by a medical professional or institution? @ -No Did you speak to anyone other than the patient for history? @ -His family provided the majority of the history. Did you review nursing and triage notes? @ -Yes, and I agree, it is accurate with regards to the patient's symptoms. Were old charts reviewed? @ -MRI of the brain from 05/14/23 demonstrating nonspecific white matter changes and no acute process. Differential Diagnosis? @ -Differential Seizure: Recurrent seizure disorder, febrile seizure, alcohol withdrawal, stimulants, meningitis, encephalitis, intercranial hemorrhage, intracranial tumor, stroke, eclampsia, thyrotoxicosis, hypocalcemia, hyponatremia, hypernatremia, hypomagnesemia, psychogenic, this is not meant to be an all-inclusive list. EKG interpreted by me (3pts min.)? @ -EKG interpreted by me demonstrating the following: Sinus rhythm. Ventricular rate 74 beats per minute, [place] interval 161 ms, QRS duration 86 ms, QTC 490 ms. X-rays interpreted by me (1pt min.)? @ -Not obtained CT interpreted by me (1pt min.)? @ -Not obtained U/S interpreted by me (1pt. min.)? @ -Not obtained What testing was considered but not performed? (CT, X-rays, U/S, labs)? Why? @ -None What meds were considered but not given? Why? @ -None Did you discuss the management of the patient with other professionals? @ -Yes, Dr. Vale, who accepts the patient for admission. Did you reconcile home meds? @ -No Was smoking cessation discussed for >3mins.? @ -No Was critical care preformed (if so, how long)? @ -No Were there social determinants of health that impacted care today? How? (Homelessness, low income, unemployed, alcoholism, drug addiction, trans portation, low edu. Level, literacy, decrease access to med. care, group home, rehab)? @ -Alcoholism, which may be contributing to his seizures. Was there de-escalation of care discussed even if they declined? (Discuss DNR or withdrawal of care, Hospice)? @ -No What co-morbidities impacted this encounter? (DM, HTN, Smoking, COPD, CAD, Cancer, CVA, Hep., AIDS, mental health diagnosis, sleep apnea, morbid obesity)? @ -Alcoholism, seizures Was patient admitted / discharged? @ -Admitted. Lab work obtained revealing mild leukocytosis and was otherwise fairly unremarkable. Patient's family states that he had 9 of these seizure episodes while in the waiting room. None of these episodes were witnessed by the staff. His describes him as appearing "catatonic" and being unresponsive. I suspect that he may have been experiencing absence seizures. Ativan and Keppra administered via IV. Given that the seizures have been increasing in frequency and are different than they have been prior, patient admitted to medicine for further management with neurology consult. He was started on the CIWA protocol in the event these are related to alcohol withdrawal, however his initial CIWA score was only 1. Undiagnosed new problem with uncertain prognosis? @ -None Drug Therapy requiring intensive monitoring for toxicity (Heparin, Nitro, Insulin, Cardizem)? @ -None Were any procedures done? @ -None Diagnosis/symptom? @ -Breakthrough seizures Acute, or Chronic, or Acute on Chronic? @ -Acute Uncomplicated (without systemic symptoms) or Complicated (systemic symptoms)? @ -Uncomplicated Side effects of treatment? @ -None Exacerbation, Progression, or Severe Exacerbation] @ -Not applicable Poses a threat to life or bodily function? @ -Yes This case was discussed in detail with the attending ED physician, Dr. Archer. Presentation, findings, and treatment plan discussed in detail as well. (Kandy Tsai) - Lab Data Lab Results 05/19/23 05/19/23 05/20/23 Range/Units 15:03 15:45 00:34 WBC 10.7 H (3.8-10.6) k/uL RBC 4.82 (4.30-5.90) m/uL Hgb 15.3 (13.0-17.5) gm/dL Hct 45.3 (39.0-53.0) % MCV 94.0 (80.0-100.0) fL MCH 31.8 (25.0-35.0) pg MCHC 33.8 (31.0-37.0) g/dL RDW 12.4 (11.5-15.5) % Plt Count 320 (150-450) k/uL MPV 7.6 Neutrophils % 64 % Lymphocytes % 21 % Monocytes % 10 % Eosinophils % 4 % Basophils % 1 % Neutrophils # 6.8 (1.3-7.7) k/uL Lymphocytes # 2.2 (1.0-4.8) k/uL Monocytes # 1.0 (0-1.0) k/uL Eosinophils # 0.4 (0-0.7) k/uL Basophils # 0.1 (0-0.2) k/uL Sodium 137 (137-145) mmol/L Potassium 4.1 (3.5-5.1) mmol/L Chloride 103 (98-107) mmol/L Carbon Dioxide 21 L (22-30) mmol/L Anion Gap 13 mmol/L BUN 14 (9-20) mg/dL Creatinine 0.57 L (0.66-1.25) mg/dL Est GFR (CKD-EPI)AfAm >90 (>60 ml/min/1.73 sqM) Est GFR (CKD-EPI)NonAf >90 (>60 ml/min/1.73 sqM) Glucose 104 H (74-99) mg/dL Calcium 10.1 (8.4-10.2) mg/dL Magnesium 2.2 (1.6-2.3) mg/dL Total Bilirubin 0.6 (0.2-1.3) mg/dL AST 36 (17-59) U/L ALT 61 H (4-49) U/L Alkaline Phosphatase 52 (38-126) U/L Total Protein 7.4 (6.3-8.2) g/dL Albumin 4.5 (3.5-5.0) g/dL TSH 1.720 (0.465-4.680) mIU/L Serum Alcohol <10 mg/dL Disposition <Devan Quintero - Last Filed: 05/19/23 14:31> <Kandy Tsai - Last Filed: 05/20/23 04:43> Clinical Impression: Breakthrough seizure Disposition: ADMITTED IP TO THIS HOSP
[2023-05-19 15:31] LABS: Basophils # (A) 0.1 k/uL (0-0.2); Basophils % (A) 1 %; Eosinophils # (A) 0.4 k/uL (0-0.7); Eosinophils % (A) 4 %; HCT 45.3 % (39.0-53.0); HGB 15.3 gm/dL (13.0-17.5); Lymphocytes # (A) 2.2 k/uL (1.0-4.8); Lymphocytes % (A) 21 %; MCH 31.8 pg (25.0-35.0); MCHC 33.8 g/dL (31.0-37.0); Mean Platelet Volume 7.6; Monocytes % (A) 10 %; Neutrophils # (A) 6.8 k/uL (1.3-7.7); Neutrophils % (A) 64 %; Platelet Count 320 k/uL (150-450); RBC 4.82 m/uL (4.30-5.90); RDW 12.4 % (11.5-15.5); WBC 10.7 k/uL (3.8-10.6)
[2023-05-19 16:10] LABS: ALT 61 U/L (4-49); AST 36 U/L (17-59); African American GFR (CKD) >90 (>60 ml/min/1.73 sqM); Albumin 4.5 g/dL (3.5-5.0); Alcohol <10 mg/dL; Alkaline Phosphatase 52 U/L (38-126); Anion Gap 13 mmol/L; Blood Urea Nitrogen 14 mg/dL (9-20); Calcium 10.1 mg/dL (8.4-10.2); Carbon Dioxide 21 mmol/L (22-30); Chloride 103 mmol/L (98-107); Glucose 104 mg/dL (74-99); Magnesium 2.2 mg/dL (1.6-2.3); Non-African American GFR(CKD) >90 (>60 ml/min/1.73 sqM); Potassium 4.1 mmol/L (3.5-5.1); Sodium 137 mmol/L (137-145); Total Bilirubin 0.6 mg/dL (0.2-1.3); Total Protein 7.4 g/dL (6.3-8.2)
[2023-05-20] MEDS ORDERED: LORazepam 2 MG/ML INJ IV STA
[2023-05-20] MEDS ORDERED: SODIUM CHLORIDE 0.9% 1,000 ML IV STA
[2023-05-20] MEDS ORDERED: LORazepam 2 MG/ML INJ IV PRN ×4 (00:02)
[2023-05-20] MEDS ORDERED: THIAMINE 100 MG/ML 2 ML VIAL IM STA (00:02)
[2023-05-20] MEDS ORDERED: LORazepam 1 MG TAB PO PRN (00:02)
[2023-05-20] MEDS: levETIRAcetam IV 500 MG/5 ML VIAL IVP SCH ×3 (00:28→23:53)
[2023-05-20] MEDS ORDERED: ACETAMINOPHEN TAB 325 MG TAB PO PRN (01:48)
[2023-05-20] MEDS ORDERED: NALOXONE 0.4 MG/ML 1 ML VIAL IV PRN (01:48)
[2023-05-20] MEDS ORDERED: ONDANSETRON 4 MG/2 ML VIAL IVP PRN (01:48)
[2023-05-20] MEDS ORDERED: KETOROLAC 15 MG/ML 1 ML VIAL IVP PRN (01:48)
[2023-05-20] MEDS: FOLIC ACID 1 MG TAB PO SCH (08:55)
[2023-05-20] MEDS: MULTIVITAMINS, THERA 1 EACH TAB PO SCH (08:55)
--- NOTE | 2023-05-20 12:23 | P.HPIM ---
History of Present Illness H&P Date: 05/20/23 Chief Complaint: blank stares, lapse of attention This is a 48-year-old gentleman with past medical history significant for recent new onset seizure 05/20/2023, attributed to possibly alcohol withdrawal with inpatient neurology workup completed and placed on Keppra,hypertension, BPH, hypothyroidism, obesity, daily alcohol use, marijuana use, and multiple other medical issues presented to the ER with complaints of having episodes of blank stares followed by a brief lapse in attention, catatonic; not recognizing family members, not speaking, losing track of events; states duration of each occurrence lasted a few minutes with occasional minimal movements of both hands, started couple of days ago/ Denies numbness or tingling. Denies headache, blurred vision. Denies lightheadedness, dizziness or focal deficits. Denies nausea vomiting or diarrhea. Denies abdominal pain. Reports compliance with medication regimen. Keppra level 10.8. Last alcohol consumption reported approximately 3 days ago. Serum alcohol level less than 10. EKG reported sinus rhythm. Afebrile, WBC 10.7. Hemoglobin 15.3, MCV 94, platelets 320. Sodium 137 potassium 4.1 bicarb 21, BUN 14, creatinine 0.57, glucose 104, magnesium 2.2, ALT 61, vitamin B12 509, TSH 1.72. Denies chest pain, palpitations or shortness of breath. Maintaining O2 sats in the high 90s on room air. Review of Systems ROS Statement: Those systems with pertinent positive or pertinent negative responses have been documented in the HPI. ROS Other: All systems not noted in ROS Statement are negative. Past Medical History Past Medical History: Hypertension Additional Past Medical History / Comment(s): irregular heartbeat dad has history of atrial fibrillation. prostate, asbergers History of Any Multi-Drug Resistant Organisms: None Reported Past Surgical History: No Surgical Hx Reported Past Anesthesia/Blood Transfusion Reactions: No Reported Reaction Past Psychological History: No Psychological Hx Reported Smoking Status: Never smoker Past Alcohol Use History: Occasional Past Drug Use History: Marijuana Medications and Allergies Home Medications Medication Instructions Recorded Confirmed Type Levothyroxine Sodium [Synthroid] 100 mcg PO DAILY@0430 05/12/23 05/20/23 History Tamsulosin HCl [Flomax] 0.4 mg PO DAILY@1630 05/12/23 05/20/23 History Cyanocobalamin [Vitamin B-12 1,000 mcg SQ WEEKLY 30 Days #4 05/16/23 05/20/23 Rx Injection] injection amLODIPine [Norvasc] 5 mg PO DAILY@0430 05/20/23 05/20/23 History levETIRAcetam [Keppra] 1,000 mg PO Q12HR@0430,1630 05/20/23 05/20/23 History Allergies Allergy/AdvReac Type Severity Reaction Status Date / Time No Known Allergies Allergy Verified 05/20/23 07:45 Physical Exam Vitals: Vital Signs Temp Pulse Resp BP Pulse Ox 05/20/23 08:00 63 18 114/72 96 05/20/23 03:30 66 18 103/68 98 05/20/23 01:54 86 18 101/68 99 05/20/23 00:43 70 17 132/87 98 05/19/23 14:43 98.2 F 81 18 128/82 98 PHYSICAL EXAM: VITAL SIGNS: As above GENERAL: Well-nourished, Lying on stretcher, no acute distress.] HEENT: Normocephalic,Conjunctivae normal. eyes normal. No scleral icterus. NECK: Supple, No JVD. No thyroid enlargement. No LNs CARDIOVASCULAR: S1, S2 regular.No murmur RESPIRATION: Unlabored, equal air entry, Breath sounds diminished in the bases. No rhonchi or crackles. No bronchial breathing. ABDOMEN: Soft, nontender, nondistended . No guarding. no masses palpable. No ascites, No hepatosplenomegaly.Bowel sounds heard. LEGS: No edema. no swelling PSYCHIATRY: Alert and oriented X3, mood and affect normal. NERVOUS SYSTEM: Cranial N 2-12 grossly normal. No focal deficits.negative flap test. Strength and sensation grossly intact. Skin: Warm and dry, no rash. Results CBC & Chem 7: 05/19/23 15:03 05/19/23 15:45 Labs: Abnormal Lab Results - Last 24 Hours (Table) 05/19/23 05/19/23 Range/Units 15:03 15:45 WBC 10.7 H (3.8-10.6) k/uL Carbon Dioxide 21 L (22-30) mmol/L Creatinine 0.57 L (0.66-1.25) mg/dL Glucose 104 H (74-99) mg/dL ALT 61 H (4-49) U/L Assessment and Plan Assessment: Possible breakthrough seizures, possible absence seizures Recent new onset seizure activity 05/12/23 is related possibly to alcohol withdrawal as per neurology, placed on Keppra Vitamin B12 deficiency Hypertension Alcohol abuse, daily Marijuana use Hypothyroidism Obesity Plan: Continue on current medication regime ,monitoring and symptomatic treatment. Maintain Keppra, seizure precautions. Neurology consult in place, evaluation and recommendations pending. The impression and plan of care has been dictated as directed. : I performed a history and examination of this patient, discussed the same with the dictator. I agree with the dictator's note ,documented as a scribe. Any additional findings or plans will be noted.
[2023-05-20] MEDS: PANTOPRAZOLE 40 MG/10 ML VIAL IVP SCH (12:56)
[2023-05-20] MEDS: LEVOTHYROXINE 100 MCG TAB PO SCH (13:00)
[2023-05-20 13:06] LABS: Amphetamine Screen,Urine Not Detected (NotDetected); Barbiturate Screen,Urine Not Detected (NotDetected); Benzodiazepines Screen,Urine Detected (NotDetected); Cocaine Screen,Urine Not Detected (NotDetected); Methadone Screen, Urine Not Detected (NotDetected); Opiate Screen,Urine Not Detected (NotDetected); Oxycodone Screen, Urine Not Detected (NotDetected); Phencyclidine Screen,Urine Not Detected (NotDetected); Tricyclic Antidepressant,Urine Not Detected (NotDetected); Urn Cannabinoid Scrn Detected (NotDetected)
[2023-05-20] MEDS ORDERED: NON FORMULARY DRUG (Levetiracetam [Keppra] 1,000 MG Tablet) PO SCH (16:30)
[2023-05-20] MEDS: TAMSULOSIN 0.4 MG CAP.ER.24H PO SCH (17:08)
[2023-05-21] MEDS: LEVOTHYROXINE 100 MCG TAB PO SCH (05:44)
--- NOTE | 2023-05-21 09:00 | P.CNNES ---
History of Present Illness Consult date: 05/20/23 Requesting physician: Kandy Tsai Reason for Consult: Breakthrough seizures History of Present Illness: Patient is a 48-year-old male with history of alcoholism, who has been diagnosed with new onset seizure disorder, was brought to the hospital by his father yesterday at 2 PM for recurrent seizures. Patient was admitted to [facility] initially on 05/12/2023 for new onset seizures. Patient had 2 EEGs, which showed some focal slowing over the left temporal region suggestive of focal cerebral dysfunction. Patient was placed on Keppra 1000 mg twice a day and discharged. At that time patient was also treated for alcohol withdrawal, as patient has long-standing history of alcoholism and was possible withdrawing from alcohol as well. Patient also underwent spinal fluid examination, which was negative for encephalitis, with negative viral panel, and MS panel. Patient had an MRI of the brain with and without contrast which revealed no acute process. No abnormal enhancement. Minimal nonspecific white matter changes, likely secondary to small vessel ischemic disease. Patient was discharged on 05/16/2023. Since discharge from the hospital, patient was doing relatively well, and taking Keppra 1000 mg twice a day and has not drank any alcohol. Patient had first breakthrough seizure on 05/17/2023 when he was playing a game. Seizure was partial seizure, consisting of blank stare, eyes were fixed, couldn't talk, did not know where he was. There was no convulsive activity, tongue bite or loss of control of urine. He had been feeling cloudy. He had 1 seizure on 05/18/2023 and on Thursday he was not communicating, was cloudy, slow to respond, struggling with words. His father took him to the doctor's office, when he had a seizure. He was recommended to go to the hospital. Since then patient had about 18 seizures. While he was in the ER, waiting for 9 hours to be roomed in, he had 12 seizures in the waiting room as per patient's father statement, although it was not witnessed by the nursing staff. These were more complex partial type seizures, in which his lips were moving a little. Patient in the ER was given Ativan and since then he has not had any seizure. His initial CIWA score documented as 1. Vital signs on arrival blood pressure 128/82, pulse 81 typical event 8.2. Blood test shows WBC 10.7 hemoglobin 15.8, normal platelets. CMP is normal to slightly elevated ALT 61. Urine drug screen positive for benzodiazepine and marijuana. Keppra level is 10.8 (3-60) blood alcohol level is negative. Review of Systems Constitutional: Reports weight loss, Denies chills, Denies fever Eyes: denies blurred vision, denies diplopia, denies pain Ears: deny: decreased hearing, ear discharge Ears, nose, mouth and throat: Denies headache, Denies nasal discharge, Denies sore throat Cardiovascular: Denies chest pain, Denies shortness of breath Respiratory: Denies cough, Denies excessive sputum Gastrointestinal: Denies abdominal pain, Denies diarrhea, Denies nausea, Denies vomiting Genitourinary: Denies incontinence, Denies urinary frequency Musculoskeletal: Denies low back pain, Denies neck pain Integumentary: Reports rash (Athletes), Denies pruritus Neurological: Reports as per HPI Psychiatric: Reports anxiety, Reports depression Endocrine: Reports weight change Past Medical History Past Medical History: Eye Disorder, Hypertension, Prostate Disorder, Thyroid Dis order Additional Past Medical History / Comment(s): enlarged prostate, asbergers, ETOH (pt drinks 3 tallboys, 5 days per week), bilateral athletes foot currently History of Any Multi-Drug Resistant Organisms: None Reported Past Surgical History: Tonsillectomy Additional Past Surgical History / Comment(s): undescended testicle surgery at 10 years old. Past Anesthesia/Blood Transfusion Reactions: No Reported Reaction Smoking Status: Never smoker Medications and Allergies Home Medications Medication Instructions Recorded Confirmed Type Levothyroxine Sodium [Synthroid] 100 mcg PO DAILY@0430 05/12/23 05/20/23 History Tamsulosin HCl [Flomax] 0.4 mg PO DAILY@1630 05/12/23 05/20/23 History Cyanocobalamin [Vitamin B-12 1,000 mcg SQ WEEKLY 30 Days #4 05/16/23 05/20/23 Rx Injection] injection amLODIPine [Norvasc] 5 mg PO DAILY@0430 05/20/23 05/20/23 History levETIRAcetam [Keppra] 1,000 mg PO Q12HR@0430,1630 05/20/23 05/20/23 History Allergies Allergy/AdvReac Type Severity Reaction Status Date / Time No Known Allergies Allergy Verified 05/20/23 07:45 Physical Examination - Vital Signs Vital Signs: Vital Signs Temp Pulse Pulse Resp BP BP Pulse Ox 05/20/23 15:01 83 18 128/84 94 L 05/20/23 13:30 98.4 F 69 18 128/82 100 05/20/23 11:28 84 18 113/72 96 05/20/23 08:00 63 18 114/72 96 05/20/23 03:30 66 18 103/68 98 05/20/23 01:54 86 18 101/68 99 05/20/23 00:43 70 17 132/87 98 Intake and Output 05/20/23 05/20/23 05/20/23 06:59 14:59 22:59 Other: Weight 98.43 kg Patient is a middle aged male, in no acute distress. Patient is alert awake oriented to time place and person. He knows it is April 2023 and that he is in [facility]. Speech and language functions are normal. Patient can name and repeat very well. No aphas ia or dysarthria. Attention, concentration and fund of knowledge is adequate. On cranial nerve examination, pupils are equal, round and reacting to light, visual schilling are full on confrontation, with no neglect on double simultaneous stimulation. Extraocular muscles are intact with no nystagmus. Face is symmetric, tongue protrudes to the midline. Palatal elevation and sensation normal, hearing and shoulder shrug normal, facial sensation normal. On muscle strength testing, there is no pronator drift and the strength is normal in arms and legs distally and proximally. Deep tendon reflexes are symmetric 1 at the biceps, 1 brachioradialis, trace at the knees and plantars are downgoing bilaterally. Sensory to touch is equal with no neglect on double simultaneous stimulation. Cerebellar function showed no ataxia for [id number] testing. No dysdiadochokinesia. No ataxia for [id number] testing on either side. Tone and bulk of muscles normal. Gait deferred.. On general examination, there is no carotid bruit or murmur, S1-S2 audible. Chest is clear on consultation. Abdomen is soft nontender. No organomegaly, bowel sounds present. Peripheral pulses are present. No peripheral edema. Results - Laboratory Findings CBC and BMP: 05/19/23 15:03 05/19/23 15:45 Abnormal Lab Findings: Abnormal Labs 05/19/23 05/19/23 05/20/23 15:03 15:45 12:38 WBC 10.7 H Carbon Dioxide 21 L Creatinine 0.57 L Glucose 104 H ALT 61 H U Benzodiazepines Scrn Detected H U Marijuana (THC) Screen Detected H Assessment and Plan Assessment: * New onset seizure disorder, since 05/12/2023, which was felt to be possible alcohol withdrawal seizures, started on Keppra 1000 mg twice a day, discharge home, and now came with numerous partial seizures. He stopped having seizures since he received Ativan in the ER. * Mild encephalopathy, likely due to postictal state. Encephalitis ruled out in the last admission. * Vitamin B12 deficiency < 150 * Hypertension * Hypothyroidism * ALBA * Alcohol use Plan: * Patient will be continued on Keppra 1000 mg twice a day for now. * Patient will undergo prolonged, 2.5 hour EEG in the morning. * Further management based upon EEG results. * Patient is aware of [place] state law of no driving unless seizure free for 6 months, climbing ladders, operating dangerous machinery or unsupervised swimming. * Neurology will follow. Thank you for the consult.
[2023-05-21] MEDS: FOLIC ACID 1 MG TAB PO SCH (10:29)
[2023-05-21] MEDS: THIAMINE 100 MG TAB PO SCH (10:29)
[2023-05-21] MEDS: PANTOPRAZOLE 40 MG/10 ML VIAL IVP SCH (10:29)
[2023-05-21] MEDS: MULTIVITAMINS, THERA 1 EACH TAB PO SCH (10:29)
[2023-05-21] MEDS: levETIRAcetam IV 500 MG/5 ML VIAL IVP SCH (12:31)
[2023-05-21] MEDS: TAMSULOSIN 0.4 MG CAP.ER.24H PO SCH (16:38)
--- NOTE | 2023-05-21 17:32 | P.PN ---
Subjective Progress Note Date: 05/21/23 H&P Date: 05/20/23 Chief Complaint: blank stares, lapse of attention This is a 48-year-old gentleman with past medical history significant for recent new onset seizure 05/20/2023, attributed to possibly alcohol withdrawal with inpatient neurology workup completed and placed on Keppra,hypertension, BPH, hypothyroidism, obesity, daily alcohol use, marijuana use, and multiple other medical issues presented to the ER with complaints of having episodes of blank stares followed by a brief lapse in attention, catatonic; not recognizing family members, not speaking, losing track of events; states duration of each occurrence lasted a few minutes with occasional minimal movements of both hands, started couple of days ago/ Denies numbness or tingling. Denies headache, blurred vision. Denies lightheadedness, dizziness or focal deficits. Denies nausea vomiting or diarrhea. Denies abdominal pain. Reports compliance with medication regimen. Keppra level 10.8. Last alcohol consumption reported approximately 3 days ago. Serum alcohol level less than 10. Urine drug screen positive for benzodiazepines and marijuana. EKG reported sinus rhythm. Afebrile, WBC 10.7. Hemoglobin 15.3, MCV 94, platelets 320. Sodium 137 potassium 4.1 bicarb 21, BUN 14, creatinine 0.57, glucose 104, magnesium 2.2, ALT 61, vitamin B12 509, TSH 1.72. Denies chest pain, palpitations or shortness of breath. Maintaining O2 sats in the high 90s on room air. 05/21/2023 evaluated by neurology, recently returned from prolonged EEG this morning. Patient reports he had a few episodes during the night of blank stares, but did not notify nursing staff. Denies chest pain, palpitations or shortness of breath. Objective - Vital Signs Vital signs: Vital Signs Temp 97.9 F 05/21/23 13:32 Pulse 87 05/21/23 13:32 Resp 16 05/21/23 13:32 BP 130/89 05/21/23 13:32 Pulse Ox 98 05/21/23 13:32 FiO2 Intake & Output 05/20/23 05/21/23 05/21/23 18:59 06:59 18:59 Weight 98.43 kg Other: # Voids 1 2 - Exam PHYSICAL EXAM: VITAL SIGNS: As above GENERAL: ALert and oriented X 2-3,NAD. HEENT: Normocephalic,Conjunctivae normal. eyes normal. No scleral icterus. NECK: Supple, No JVD. CARDIOVASCULAR: S1, S2 regular.No murmur RESPIRATION: Unlabored, equal air entry, Breath sounds diminished in the bases. ABDOMEN: Soft, nontender, nondistended . No guarding. no masses palpable.+BS LEGS: No edema. no swelling NERVOUS SYSTEM: Cranial N 2-12 grossly normal. No focal deficits.negative flap test. Strength and sensation grossly intact. Skin: Warm and dry, no rash. - Labs CBC & Chem 7: 05/19/23 15:03 05/19/23 15:45 Assessment and Plan Assessment: Partial seizures Recent new onset seizure activity 05/12/23 is related possibly to alcohol withdrawal as per neurology, placed on Keppra Vitamin B12 deficiency Hypertension Alcohol abuse, daily Marijuana use Hypothyroidism ALBA Obesity Plan: Continue on current medication regime ,monitoring and symptomatic treatment. EEG results pending . Continue on Keppra, seizure precautions. Follow closely with neurology. Discharge planning in progress. The impression and plan of care has been dictated as directed. : I performed a history and examination of this patient, discussed the same with the dictator. I agree with the dictator's note ,documented as a scribe. Any additional findings or plans will be noted.
[2023-05-21] MEDS: levETIRAcetam 500 MG TAB PO SCH (21:51)
[2023-05-22] MEDS: LEVOTHYROXINE 100 MCG TAB PO SCH (04:30)
--- NOTE | 2023-05-22 07:57 | P.PN ---
Subjective Progress Note Date: 05/21/23 Patient was seen for a follow-up. Patient's father was also present today. He denies any seizures since yesterday. Patient denies any headache. He states he is feeling much better. Objective - Vital Signs Vital signs: Vital Signs Temp 97.9 F 05/21/23 13:32 Pulse 87 05/21/23 13:32 Resp 16 05/21/23 13:32 BP 130/89 05/21/23 13:32 Pulse Ox 98 05/21/23 13:32 FiO2 Intake & Output 05/20/23 05/21/23 05/21/23 18:59 06:59 18:59 Weight 98.43 kg Other: # Voids 1 2 - Exam Patient is alert and awake, in no distress. Patient is slightly slow mentation. Speech and language functions are normal. Muscle strength is normal. No ataxia. - Labs CBC & Chem 7: 05/19/23 15:03 05/19/23 15:45 Assessment and Plan Assessment: * New onset seizure disorder, since 05/12/2023, which was felt to be possible alcohol withdrawal seizures, started on Keppra 1000 mg twice a day, discharged home, and now came on 05/19/2023 with numerous partial seizures. He stopped having seizures since he received Ativan in the ER. * Mild encephalopathy, likely due to postictal state. Encephalitis ruled out in the last admission. * Vitamin B12 deficiency < 150 * Hypertension * Hypothyroidism * ALBA * Alcohol use Plan: * Patient underwent prolonged, 2.5 hours EEG today. As per preliminary report, it was abnormal due to presence of intermittent right hemispheric focal slowing, suggestive of focal cortical neuronal dysfunction. Intermittent, sporadic sharp waves seen in the right hemispheric region, which at times becomes more rhythmic at 2-3 Hz. This is suggestive of focal cortical neuronal dysfunction with underlying cortical irritability and tendency for pa rtial onset seizures. Patient's dose of Keppra increased to 1500 mg twice a day. If he has any more seizures, would recommend transfer to her level of care for continuous EEG monitoring. * We will observe overnight. * Patient was informed to document that time and date any seizure that he gets, and also to notify the nursing staff. Also discussed with primary team.
--- NOTE | 2023-05-22 08:44 | EEG ---
ELECTROENCEPHALOGRAM REPORT TECHNIQUE: This is a report from a prolonged 2.5 hour inpatient digital EEG performed using the 10/20 international electrode placement system. HISTORY: The patient is a 48-year-old male, who has a longstanding history of alcoholism, started having new onset seizure since 05/12/2023. The patient has been started on Keppra, but he came with multiple seizures and was readmitted. This study is performed to evaluate for epileptiform activity. CURRENT MEDICATIONS: Keppra 1000 mg b.i.d., Toradol, folic acid, multivitamins, and thiamine. FINDINGS: The recording start time 05/21/2023 at 7:22 a.m. Recording end time 05/21/2023 at 9:55 a.m. EVENTS: During this 2.5 hour continuous video EEG monitoring, no clinical events were documented. BACKGROUND: Consists of somewhat suppressed, low amplitude activity with excessive fast frequency beta activity seen during the study. The background seems to be reactive to eye opening and closing. Some well-formed alpha activity also seen in the posterior head region. ACTIVATION: Hyperventilation not performed, photic stimulation, photic driving response was seen with some flash frequencies. Sleep, stage 1 and 2 sleep were noted. ABNORMALITIES: 1. Presence of intermittent paroxysmal bursts of moderate amplitude, rhythmic 4 to 6 hertz theta activity seen in right hemispheric region. 2. Presence of intermittent of focal epileptiform activity with sharp and slow waves involving the right hemispheric region that becomes rhythmic at 2 to 3 hertz, sometimes spreading to bihemispheric region. This activity occurred a few times during this study, lasted for a variable duration from a few seconds to 10 to 15 seconds periodically. IMPRESSION: Abnormal 2.5 hour video EEG. The presence of focal slowing over the right hemispheric region, suggestive of focal cortical neuronal dysfunction. Presence of epileptiform activity also involving the right hemispheric region, which at times becomes rhythmic, lasting for a few seconds to several seconds periodically may suggest ictal event. Clinically, no motor activity was noted during these events. Overall, this EEG implies a tendency for focal onset seizures. Suggest continuous EEG monitoring, if clinically indicated. MMVIKIL / EDGARN: [id number] /
--- NOTE | 2023-05-22 08:57 | P.DS ---
Providers Date of admission: 05/20/23 01:49 Attending physician: Kali Vale MD Consults: 05/20/23 01:48 Consult Physician Urgent Consulting Provider: Nixon Winslow Consult Reason/Comments: Breakthrough seizures Do you want consulting provider notified?: Yes Primary care physician: Lauren Archer Plan - Discharge Summary New Discharge Prescriptions: New Multivitamins, Thera [Multivitamin (formulary)] 1 each PO DAILY tab Acetaminophen Tab [Tylenol] 650 mg PO Q6HR PRN tab PRN Reason: Mild Pain Or Fever > 100.5 Thiamine [Vitamin B-1] 100 mg PO DAILY tab Folic Acid 1 mg PO DAILY tab levETIRAcetam [Keppra] 1,500 mg PO Q12HR #180 tab Continue Levothyroxine Sodium [Synthroid] 100 mcg PO DAILY@0430 Tamsulosin HCl [Flomax] 0.4 mg PO DAILY@1630 Cyanocobalamin [Vitamin B-12 Injection] 1,000 mcg SQ WEEKLY 30 Days #4 injection levETIRAcetam [Keppra] 1,000 mg PO Q12HR@0430,1630 amLODIPine [Norvasc] 5 mg PO DAILY@0430 Discharge Medication List Levothyroxine Sodium [Synthroid] 100 mcg PO DAILY@0430 05/12/23 [History] Tamsulosin HCl [Flomax] 0.4 mg PO DAILY@1630 05/12/23 [History] Cyanocobalamin [Vitamin B-12 Injection] 1,000 mcg SQ WEEKLY 30 Days #4 injection 05/16/23 [Rx] amLODIPine [Norvasc] 5 mg PO DAILY@0430 05/20/23 [History] levETIRAcetam [Keppra] 1,000 mg PO Q12HR@0430,1630 05/20/23 [History] Acetaminophen Tab [Tylenol] 650 mg PO Q6HR PRN tab 05/22/23 [Rx] Folic Acid 1 mg PO DAILY tab 05/22/23 [Rx] Multivitamins, Thera [Multivitamin (formulary)] 1 each PO DAILY tab 05/22/23 [R x] Thiamine [Vitamin B-1] 100 mg PO DAILY tab 05/22/23 [Rx] levETIRAcetam [Keppra] 1,500 mg PO Q12HR #180 tab 05/22/23 [Rx] Follow up Appointment(s)/Referral(s): Randy Richey MD [STAFF PHYSICIAN] - 1 Week Lauren Archer DO [Primary Care Provider] - 3 Days Activity/Diet/Wound Care/Special Instructions: Patient is aware of [place] state law of no driving unless seizure free for 6 months, climbing ladders, operating dangerous machinery or unsupervised swimming. Discharge/Stand Alone Forms: AA Meetings [facility], Community Resources, Outpatient Counseling, In Substance Abuse Facilities, Personal Instrument Lens Grinder Apprentice
[2023-05-22] MEDS: PANTOPRAZOLE 40 MG/10 ML VIAL IVP SCH (09:25)
[2023-05-22] MEDS: THIAMINE 100 MG TAB PO SCH (09:25)
[2023-05-22] MEDS: MULTIVITAMINS, THERA 1 EACH TAB PO SCH (09:25)
[2023-05-22] MEDS: levETIRAcetam 500 MG TAB PO SCH ×2 (09:25→21:11)
[2023-05-22] MEDS: FOLIC ACID 1 MG TAB PO SCH (09:30)
[2023-05-22] MEDS ORDERED: Lacosamide IV (ages 17+ yrs) 200 MG/20 ML ML IVP SCH (10:45)
--- NOTE | 2023-05-22 11:55 | P.PN ---
Subjective Progress Note Date: 05/22/23 H&P Date: 05/20/23 Chief Complaint: blank stares, lapse of attention This is a 48-year-old gentleman with past medical history significant for recent new onset seizure 05/20/2023, attributed to possibly alcohol withdrawal with inpatient neurology workup completed and placed on Keppra,hypertension, BPH, hypothyroidism, obesity, daily alcohol use, marijuana use, and multiple other medical issues presented to the ER with complaints of having episodes of blank stares followed by a brief lapse in attention, catatonic; not recognizing family members, not speaking, losing track of events; states duration of each occurrence lasted a few minutes with occasional minimal movements of both hands, started couple of days ago/ Denies numbness or tingling. Denies headache, blurred vision. Denies lightheadedness, dizziness or focal deficits. Denies nausea vomiting or diarrhea. Denies abdominal pain. Reports compliance with medication regimen. Keppra level 10.8. Last alcohol consumption reported approximately 3 days ago. Serum alcohol level less than 10. Urine drug screen positive for benzodiazepines and marijuana. EKG reported sinus rhythm. Afebrile, WBC 10.7. Hemoglobin 15.3, MCV 94, platelets 320. Sodium 137 potassium 4.1 bicarb 21, BUN 14, creatinine 0.57, glucose 104, magnesium 2.2, ALT 61, vitamin B12 509, TSH 1.72. Denies chest pain, palpitations or shortness of breath. Maintaining O2 sats in the high 90s on room air. 05/21/2023 evaluated by neurology, recently returned from prolonged EEG this morning. Patient reports he had a few episodes during the night of blank stares, but did not notify nursing staff. Denies chest pain, palpitations or shortness of breath. 05/22/2023 abnormal 2.5 hour EEG reporting presence of focal slowing over the right hemispheric region suggestive of focal cortical neuronal dysfunction. Presence of a left to full activity also involving the right hemispheric region which at times becomes rhythmic lasting for a few seconds to several seconds periodically may suggest ictal event. Clinically no motor activity noted during these events. Maintained on increased Keppra dose, seizure precautions. No seizure activity reported per staff and patient. Denies difficulty swallowing, consuming 75-100% of diet with no nausea vomiting or diarrhea. Denies abdominal pain. Denies lightheadedness, dizziness or focal deficits. Denies headache. Denies chest pain, palpitations or shortness of breath. Objective - Vital Signs Vital signs: Vital Signs Temp 98.4 F 05/22/23 07:30 Pulse 86 05/22/23 07:30 Resp 18 05/22/23 07:30 BP 144/87 05/22/23 07:30 Pulse Ox 97 05/22/23 07:30 FiO2 Intake & Output 05/21/23 05/22/23 05/22/23 18:59 06:59 18:59 Other: # Voids 1 - Exam PHYSICAL EXAM: VITAL SIGNS: As above GENERAL: ALert and oriented X 3,NAD. HEENT: Normocephalic,Conjunctivae normal. eyes normal. NECK: Supple, No JVD. CARDIOVASCULAR: S1, S2 regular.No murmur RESPIRATION: Unlabored, equal air entry, CTA. ABDOMEN: Soft, nontender, nondistended . No guarding. +BS LEGS: No edema. no swelling NERVOUS SYSTEM: Cranial N 2-12 grossly normal. Strength and sensation grossly intact. Skin: Warm and dry, no rash. - Labs CBC & Chem 7: 05/19/23 15:03 05/19/23 15:45 Assessment and Plan Assessment: Partial seizures, abnormal prolonged EEG Recent new onset seizure activity 05/12/23 is related possibly to alcohol withdrawal as per neurology, placed on Keppra Vitamin B12 deficiency Hypertension Alcohol use, daily Marijuana use Hypothyroidism ALBA Obesity Plan: Continue on current medication regime ,monitoring and symptomatic treatment. Discharge cancelled. , reporting that patient is not at baseline, reporting he has fluctuating mild confusion. Transfer to tertiary care center for more intense continuous monitoring recommended, patient and significant other declined at this time. Vimpat has been added in addition to Keppra per neurology. Patient will be continued to be monitored overnight with plans for DC tomorrow or transfer to tertiary care center if no improvement .Maintain seizure precautions. The impression and plan of care has been dictated as directed. : I performed a history and examination of this patient, discussed the same with the dictator. I agree with the dictator's note ,documented as a scribe. Any additional findings or plans will be noted.
--- NOTE | 2023-05-22 15:30 | P.PN ---
Subjective Progress Note Date: 05/22/23 Patient was seen for a follow-up. Patient's was present today, and she also had patient's father on the speaker phone as well. Patient has not had any clinical seizures since he came from the floor. Her last documented seizure that they have witnessed his day before yesterday. Patient denies any headache. He states he is feeling much better. patient's believes that he is now very near back to normal. She believes only 70% back to normal. He is delayed in response, could not remember his dog's name, although they have 3 daughters, almost like they're children. Patient's describes his previous seizures as probable complex partial seizures. He would be talking or playing solitaire, when he would stop responding, stares off in space, cannot focus, sometimes make some sounds, cannot talk until at the end of this event, when he gets some mouth movement and then he comes out of it. Patient can sense some loss of time with his events. Objective - Vital Signs Vital signs: Vital Signs Temp 98.4 F 05/22/23 07:30 Pulse 86 05/22/23 07:30 Resp 18 05/22/23 07:30 BP 144/87 05/22/23 07:30 Pulse Ox 97 05/22/23 07:30 FiO2 Intake & Output 05/21/23 05/22/23 05/22/23 18:59 06:59 18:59 Other: # Voids 1 - Exam Patient is alert and awake, in no distress. Patient is slightly slow mentation. He does appear somewhat spacey, slightly encephalopathic although he is interactive. Speech and language functions are normal. Patient knows it is 05/22/2023 and that he is in [facility]. Muscle strength is normal. No ataxia. - Labs CBC & Chem 7: 05/19/23 15:03 05/19/23 15:45 Assessment and Plan Assessment: * New onset seizure disorder, since 05/12/2023, which was felt to be possible alcohol withdrawal seizures, started on Keppra 1000 mg twice a day, discharged home, and now came on 05/19/2023 with numerous partial seizures. He stopped having seizures since he received Ativan in the ER. * Mild encephalopathy, likely due to postictal state. Encephalitis ruled out in the last admission. * Significantly abnormal EEG, with epileptiform activity intermittently seen in the right hemispheric region. Patient did not have any obvious motor activity noted during the EEG. Cannot rule out subclinical status. * Vitamin B12 deficiency < 150 * Hypertension * Hypothyroidism * ALBA * Alcohol use Plan: * Prolonged EEG, 2.5 hours EEG 05/21/2023. As per preliminary report, it was abnormal due to presence of intermittent right hemispheric focal slowing, suggestive of focal cortical neuronal dysfunction. Intermittent, sporadic sharp waves seen in the right hemispheric region, which at times becomes more rhythmic at 2-3 Hz. This is suggestive of focal cortical neuronal dysfunction with underlying cortical irritability and tendency for partial onset seizures. * Patient's dose of Keppra increased to 1500 mg twice a day. * Discussed with patient's , who believes that patient is not back to [facility] yet. He is only 70% normal. He still has memory loss, delayed response, sometimes gets agitated. * I discussed with patient, his and patient's father about transfer to her level of care for continuous EEG monitoring. They declined, wanted to stay in this hospital for one more day. * Patient will receive Vimpat 200 mg IV 1 dose followed by Vimpat 100 mg by mouth twice a day. Discussed with the pharmacist about the loading dose. * Repeat prolonged EEG 2.5 hours today. * Patient and his family will see him in the morning. If his mentation is back to normal, he will be discharged, otherwise potentially transferred to another facility for continuous EEG monitoring. * We will check NMDA antibodies to evaluate for autoimmune encephalitis. * We will repeat MRI of the brain with and without contrast. * We will observe overnight. * Discussed with primary team as well and almost family conference was performed with patient, his , his father, primary physician and myself. * Dr. De Oliveira will be covering neurology service over the weekend and Dr. Levy starting from Thursday.
--- NOTE | 2023-05-22 17:05 | MR ---
EXAMINATION TYPE: MR brain wo/w con DATE OF EXAM: 05/22/2023 COMPARISON: HISTORY: Recurrent focal seizures, ?encephalitis, compare to prior 05-13-23. CONTRAST: Performed utilizing 10 mL intravenous Gadavist gadolinium contrast. TECHNIQUE: Multiplanar, multiecho imaging on a 3.0 Viviana magnet is performed through the brain. Stud y is performed within 24 hours of arrival to the hospital. The craniovertebral junction is normal. The pituitary is normal. Diffusion-weighted imaging is performed. No abnormal hyperintensity is present to suggest an acute i ntracranial infarct or acute ischemic change. Couple of punctate subcortical white matter changes are within the left frontal lobe series 501 image s 19-20. Subcortical white matter changes are within the centrum semiovale left frontal lobe and in t he parietal occipital region on the left. Series 501 image 23. Punctate white matter changes in the s ubcortical white matter frontal lobe vertex. Series 501 image 25. Ventricles and sulci are appropriate for the patient age. No abnormal enhancement is evident. IMPRESSION: 1. Scattered punctate subcortical white matter changes. Findings are nonspecific. Differential diagno sis could include but is not limited to multiple sclerosis, migraine headaches, vasculitis, Lyme dise ase
[2023-05-22] MEDS: TAMSULOSIN 0.4 MG CAP.ER.24H PO SCH (17:08)
[2023-05-22] MEDS: Lacosamide IV (ages 17+ yrs) 200 MG/20 ML ML IVP SCH (22:57)
[2023-05-23] MEDS: LEVOTHYROXINE 100 MCG TAB PO SCH (04:56)
[2023-05-23] MEDS: Lacosamide IV (ages 17+ yrs) 200 MG/20 ML ML IVP SCH ×2 (09:06→20:40)
[2023-05-23] MEDS: PANTOPRAZOLE 40 MG/10 ML VIAL IVP SCH (09:06)
[2023-05-23] MEDS: MULTIVITAMINS, THERA 1 EACH TAB PO SCH (09:07)
[2023-05-23] MEDS: FOLIC ACID 1 MG TAB PO SCH (09:07)
[2023-05-23] MEDS: levETIRAcetam 500 MG TAB PO SCH ×2 (09:07→20:39)
[2023-05-23] MEDS: THIAMINE 100 MG TAB PO SCH (09:07)
--- NOTE | 2023-05-23 12:47 | DS ---
DISCHARGE SUMMARY FINAL DIAGNOSES: 1. Seizure disorder and breakthrough seizures, possibly complex partial seizures. 2. Rule out encephalopathy. 3. White matter lesions in the MRI. 4. History of vitamin B12 deficiency. 5. Hypertension. 6. Hypothyroidism. 7. ALBA. 8. History of EtOH. DISCHARGE DISPOSITION: The patient was transferred in a stable condition, guarded prognosis, to [facility] for continuous EEG monitoring. Time taken more than 35 minutes. HISTORY OF PRESENT ILLNESS: This is a 48-year-old gentleman with a past medical history of multiple medical problems, admitted with breakthrough seizures. The patient was seen by Neurology. Keppra was increased and lacosamide was added. Despite that, the patient had possibly complex partial seizures while doing the exam by Neurology. The neurologist, Dr. De Oliveira recommended the patient be transferred to [facility]. I talked to [facility], neuro-marine steam fitter helper on-call and the patient will be transferred to [facility] for further evaluation treatment. PHYSICAL EXAMINATION: VITALS: Stable. CARDIOVASCULAR: S1, S2. ABDOMEN: Soft. NERVOUS SYSTEM: Nonfocal. MEDICATIONS: Please refer to the current list of medications for list of medications. Otherwise, basic labs remained stable. Currently stable, but overall prognosis guarded. MMODL / IJN: [id number] /
--- NOTE | 2023-05-23 13:45 | P.PN ---
Subjective Progress Note Date: 05/23/23 The pt is a 48 y/o male who is seen in neurologic follow up, in cross coverage for Dr. Winslow, via teleneurology. The pt's chart has been reviewed. MRI images have been personally viewed. I agree with the radiology report. There is no indication of abnormality or lesion involving the right frontal lobe, which seems to be the origin of the pt's seizures. The pt's family is present at the bedside at the time of the evaluation. They feel the pt is somewhat better than yesterday. The pt himself also feels better. Objective - Vital Signs Vital signs: Vital Signs Temp 98.1 F 05/23/23 08:00 Pulse 82 05/23/23 08:00 Resp 18 05/23/23 08:00 BP 130/84 05/23/23 08:00 Pulse Ox 98 05/23/23 08:00 FiO2 21 05/22/23 15:31 Intake & Output 05/22/23 05/23/23 05/23/23 18:59 06:59 18:59 Other: Voiding Method Toilet Toilet # Voids 3 - Exam General: The pt is well nourished and in no distress HEENT: Atraumatic, normocephalic. No scleral icterus Neurologic examination Mental status: Initially, the pt is awake and alert. He is able to answer all questions appropriately. Part way thru the questioning, the pt stopped responding. His eyes remained open. There was no gaze deviation or evidence of tonic clonic movements, facial movements or abnormal eye blinking. This unresponsive state lasted for 2 minutes. Following this episode, the pt was confused for approx. 30 seconds, then was again able to answer questions. Cranial nerves : 2-12 grossly intact Motor: Moving all 4 extremities - Labs CBC & Chem 7: 05/19/23 15:03 05/19/23 15:45 Assessment and Plan Assessment: New onset seizure disorder, since 05/12/2023. Continued seizures despite Keppra 1500mg bid and Vimpat 200mg load, with 100mg bid. * Mild encephalopathy, likely due to postictal state. Encephalitis ruled out in the last admission. * Significantly abnormal EEG, with epileptiform activity intermittently seen in the right hemispheric region. Patient did not have any obvious motor activity noted during the EEG. Cannot rule out subclinical status. * Vitamin B12 deficiency < 150 * Hypertension * Hypothyroidism * ALBA * Alcohol use Plan: 1. The pt continues to have seizures and requires transfer to a facility that can offer 24hr continous EEG monitoring 2. Repeat MRI gives no indication for seizure etiology Time with Patient: Greater than 30 (37 minutes spent caring for pt)
[2023-05-23] MEDS: TAMSULOSIN 0.4 MG CAP.ER.24H PO SCH (15:43)
[2023-05-23 21:14] VITALS: BP 124/88; PULSE 69; RESP 16; TEMP 97.9
--- NOTE | 2023-05-26 09:11 | EEG ---
ELECTROENCEPHALOGRAM REPORT This is a video EEG 2.5 hours continuous monitoring by spa technician report. TECHNIQUE: This is a report from prolonged 2.5 hours inpatient digital EEG performed using the 10/20 international electrode placement system. HISTORY: The patient is a 48-year-old male with longstanding history of alcoholism, started having new onset seizures since 05/12/2023. The patient had a recent 2.5 hours EEG performed, which revealed epileptiform activity. This is a followup study performed. CURRENT MEDICATIONS: 1. Keppra 1500 mg b.i.d. 2. Multivitamins, thiamine. FINDINGS: Recording start time 05/22/2023 at 1:15 p.m. Recording end time 05/22/2023 at 3:52 p.m. EVENTS: During this 2.5-hour continuous video EEG monitoring, there were 5 electrographic seizures recorded. During the first seizure, that occurred during hyperventilation, it was recorded that the patient was having difficulty following, he was not responding to his name and been not hyperventilated as was requested. BACKGROUND: The background consists of moderately well-developed and regulated, mixed frequencies of alpha, with some fast frequency beta activity seen in bihemispheric region. Background is posterior dominant, and seems to be reactive to eye opening and closing. ACTIVATION: During hyperventilation, the patient was having a focal seizure, as described in the lower part of this report. Photic stimulation was not performed. Stage 1 and stage 2 sleep were noted with presence of sleep spindles and vertex waves. ABNORMALITIES: 1. Presence of very frequent bilateral anterior temporal dysrhythmic theta activity, with some sharp appearing waves seen sporadically during this study. 2. Recording of 5 electrographic seizures during the study. The first seizure lasted for 9 minutes, was ongoing at the onset of the study, the second one lasted for 8 minutes, the third seizure for 13 minutes, fourth seizure for 11 minutes, and the last fifth seizure for 9 minutes. The seizure starts with development of rhythmic alpha over the right temporal region, that extends to involve the right hemispheric region with rhythmic 4 hertz theta activity, then slowly extends to bihemispheric region, sharp and slow waves at about 2 hertz. During one of the seizures, the patient was not responding to the spa technician. IMPRESSION: Abnormal 2.5-hour video EEG. The presence of 5 electrographic seizures, all originating from the right hemispheric region that slowly progressed to involve bihemispheric region, lasting from between 8 to 30 minutes. No motor activity was documented during these ictal events. Although the patient was noted to be not responding during one of them. Overall, this study is suggestive of presence of epileptic focus involving the right anterior temporal region and is consistent with localization-related epilepsy. In appropriate clinical setting, subclinical status cannot be ruled out. Strongly recommend continuous video EEG monitoring for further evaluation and management of seizure disorder. MMODL / IJN: [id number] /
== END 2023-05-24 01:35 | disposition short-term general hospital (02) | DRG 101 ==
LOC: EC 14:00 → 5NMEDONC 05-20 01:49
PROVIDERS: ADMIT Family Medicine; ATTEND Family Medicine
DX: G40.209 Localization-related (focal) (partial) symptomatic epilepsy and epileptic syndromes with complex partial seizures, not intractable, without status epilepticus (principal); G93.49 Other encephalopathy; F84.0 Autistic disorder; K75.81 Nonalcoholic steatohepatitis (NASH); E66.9 Obesity, unspecified; I10 Essential (primary) hypertension; E03.9 Hypothyroidism, unspecified; F10.10 Alcohol abuse, uncomplicated; N40.0 Benign prostatic hyperplasia without lower urinary tract symptoms; E53.8 Deficiency of other specified B group vitamins; R41.3 Other amnesia; Y90.0 Blood alcohol level of less than 20 mg/100 ml; Z79.890 Hormone replacement therapy; Z79.899 Other long term (current) drug therapy; Z68.29 Body mass index [BMI] 29.0-29.9, adult
CPT/HCPCS: 36415; 70553; 80053; 80177; 80306; 80320; 82607; 83735; 84425; 84443; 85025; 87327; 93005; 94760; 95700; 95713; 96361; 96374; 96375; 96376; 99285

== ENCOUNTER → 2023-10-20 | Outpatient (CLI) | payer BC ==
--- NOTE | 2023-10-23 13:15 | MR ---
EXAMINATION TYPE: MR brain wo/w con DATE OF EXAM: 10/20/2023 COMPARISON: 05/22/2023 HISTORY: Seizure. CONTRAST: Performed utilizing 11 mL intravenous Gadavist gadolinium contrast. TECHNIQUE: Multiplanar, multiecho imaging on a 3.0 Viviana magnet is performed through the brain. Stud y is performed within 24 hours of arrival to the hospital. The craniovertebral junction is normal. The pituitary is normal. Diffusion-weighted imaging is performed. No abnormal hyperintensity is present to suggest an acute i ntracranial infarct or acute ischemic change. Couple punctate hyperintensities within subcortical white matter are present. These are stable in [place] earance and number from the comparison study. This is nonspecific but can be related to microvascular ischemic change or migraine headaches. Other etiologies not excluded. Signal within the brain appears otherwise normal. Temporal lobes are symmetrical. Signal within the t emporal lobes are normal. Ventricles and sulci are appropriate for the patient age. No abnormal enhancement is evident. IMPRESSION: 1. Couple of punctate white matter changes are nonspecific but can be related to migraine headaches o r microvascular ischemic change. Findings are stable from comparison. 2. No suspicious abnormalities to account for seizure.
== END | disposition home or self-care (01) ==
LOC: RADMRIMAIN 18:20
PROVIDERS: ATTEND Psychiatry & Neurology Neurology
DX: G93.89 Other specified disorders of brain (principal); G40.201 Localization-related (focal) (partial) symptomatic epilepsy and epileptic syndromes with complex partial seizures, not intractable, with status epilepticus
CPT/HCPCS: 70553; A9585